=== PATIENT | female | born 1980 | race Caucasian/White ===

== ENCOUNTER 2016-09-30 20:40 | Emergency (ER) | payer MEDICAID ==
[2016-09-30] MEDS ORDERED: CLINDAMYCIN 150 MG CAPSULE PO STA (21:09)
[2016-09-30] MEDS ORDERED: CLINDAMYCIN 150 MG CAPSULE PO ONE (21:10)
== END 2016-09-30 21:15 | disposition home or self-care (01) ==
DX: N76.4 Abscess of vulva (principal); F17.200 Nicotine dependence, unspecified, uncomplicated
CPT/HCPCS: 10160; 87070; 87077; 87181; 87205; 99283; A9270

== ENCOUNTER 2017-03-01 12:16 | Emergency (ER) | payer MEDICAID ==
[2017-03-01 12:27] VITALS: BP 130/84
[2017-03-01] MEDS ORDERED: KETOROLAC 30 MG/ML VIAL IM STA (13:12)
[2017-03-01] MEDS ORDERED: CYCLOBENZAPRINE 10 MG TABLET PO STA (13:12)
[2017-03-01] MEDS ORDERED: DEXAMETHASONE 10 MG/ML VIAL PO STA (13:12)
[2017-03-01] MEDS ORDERED: CHERRY SYRUP 10 ML UDC PO ONE (13:14)
[2017-03-01] MEDS ORDERED: KETOROLAC 30 MG/ML VIAL ONE (13:14)
[2017-03-01] MEDS ORDERED: CYCLOBENZAPRINE 10 MG TABLET PO ONE (13:14)
[2017-03-01] MEDS ORDERED: DEXAMETHASONE 10 MG/ML VIAL ONE (13:15)
--- NOTE | 2017-03-01 13:16 | ED Physician Documentation ---
PD HPI BACK PAIN - Stated complaint Stated Complaint: LOW BACK PX - Chief complaint Chief Complaint: Back Pain - History obtained from History obtained from: Patient - History of Present Illness Timing - onset: How many days ago (2) Timing - duration: Days (2) Timing - details: Gradual onset Pain level max: 8 Pain level now: 6 Location: Lower, Right, Left Quality: Pain, Spasm, Similar to prior episodes Associated symptoms: No: Fever, Weakness, Numbness, Incontinent of urine, Unable to urinate, Hematuria, Incontinent of stool Improves with: Rest Worsened by: Movement Contributing factors: Other (Patient states that the pain started after riding her bicycle for approximately 3-4 blocks 2 days ago with her 5-year-old son. 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, Ovarian cysts : None HEENT: None Psych: Depression, Anxiety Musculoskeletal: None Derm: None - Past Surgical History Past Surgical History: Yes /LOOM OPERATOR APPRENTICE: section, Tubal ligation, Hysterectomy HEENT: Other - Present Medications Home Medications: Ambulatory Orders Medication Instructions Recorded Confirmed Venlafaxine [Effexor] 150 mg PO BID 09/13/13 03/01/17 Cyclobenzaprine [Flexeril] 10 mg PO TID PRN 03/11/14 03/01/17 Nortriptyline [Pamelor] 50 mg PO QPM 03/11/14 03/01/17 Metoprolol Tartrate [Lopressor] 25 mg PO DAILY #20 tablet 09/02/14 03/01/17 oxyCODONE/ACET 5/325 [Percocet 5 1 each PO Q4-6H PRN #10 tablet 05/06/15 mg/325 mg] Lorazepam [Ativan] 1 mg PO BID PRN #14 tablet 05/11/16 03/01/17 Omeprazole 40 mg PO BID 05/17/16 03/01/17 Quetiapine Fumarate [Seroquel] 100 mg PO QPM 05/17/16 03/01/17 Naproxen 375 mg PO BID #20 tablet 05/24/16 03/01/17 Ondansetron HCl [Zofran] 4 mg PO Q6H PRN #20 tablet 05/24/16 03/01/17 Phenytoin [Dilantin] 100 mg PO TID #60 capsule 06/03/16 03/01/17 Clindamycin [Cleocin] 300 mg PO Q6H 7 Days 09/30/16 03/01/17 Cyclobenzaprine [Flexeril] 1 tab TID PRN 03/01/17 03/01/17 Cyclobenzaprine [Flexeril] 10 mg PO TID PRN #20 tablet 03/01/17 Hydrocodone/Acetaminophen 1 - 2 each PO Q6H PRN #10 tablet 03/01/17 [Hydrocodon-Acetaminophen 5-325] Meloxicam [Mobic] 7.5 mg PO BID PRN #20 tablet 03/01/17 Metoprolol Succinate 1 tab BID 03/01/17 03/01/17 Polyethylene Glycol 3350 [Miralax] 17 gm PO DAILY PRN #1 bottle 03/01/17 - Allergies Allergies/Adverse Reactions: Allergies Allergy/AdvReac Type Severity Reaction Status Date / Time Penicillins Allergy Hives Verified 03/01/17 12:25 acyclovir AdvReac Severe sick to Verified 03/01/17 12:25 stomach; vomiting; - Social History Does the pt smoke?: Yes Smoking Status: Current every day smoker Does the pt drink ETOH?: No Does the pt have substance abuse?: No - Immunizations Immunizations are current?: Yes - POLST Patient has POLST: No PD ED PE NORMAL - Vitals Vital signs reviewed: Yes - General General: Alert and oriented X 3, No acute distress, Well developed/nourished - HEENT HEENT: Moist mucous membranes - Neck Neck: Supple, no meningeal sign - Cardiac Cardiac: RRR - Respiratory Respiratory: No respiratory distress, Clear bilaterally - Abdomen Abdomen: Soft, Non tender, Non distended - Back Back: No spinal TTP - Derm Derm: Warm and dry - Extremities Extremities: Other (normal bilateral lower extremity patellar and ankle jerk reflexes. Normal great toe extension bilaterally) - Neuro Neuro: Alert and oriented X 3, No motor deficit, No sensory deficit - Psych Psych: Normal mood, Normal affect Results - Vitals Vitals: Vital Signs - 24 hr 03/01/17 12:20 Temperature 36.9 C Heart Rate 86 Respiratory 18 Rate Blood Pressure 130/84 H O2 Saturation 97 Oxygen O2 Source Room air PD MEDICAL DECISION MAKING - ED course Complexity details: re-evaluated patient, considered differential (no cauda equina, no spinal epidural abscess, no fracture, no aortic dissection or evidence of aneursym rupture), d/w patient ED course: Patient is a 36-year-old female who presents to the emergency department with low back pain that radiates to the bilateral legs. Possible sciatica? No evidence of sacroiliitis. No evidence of spinal epidural abscess. No evidence of fracture. Will treat her with nonsteroidal anti-inflammatory medications and muscle relaxants. We will have her follow-up with her doctor on Thursday for further evaluation and care. She also complains of muscle cramping and this should improve with muscle relaxants. She also has had some constipation, will prescribe MiraLAX for her. Patient counseled regarding signs and symptoms for which I believe and urgent re-evaluation would be necessary. Patient with good understanding of and agreement to plan and is comfortable going home at this time This document was made in part using voice recognition software. While efforts are made to proofread this document, sound alike and grammatical errors may occur. Departure - Departure Disposition: Home, Self Care Clinical Impression: Sciatica Qualifiers: Laterality: bilateral Qualified Code(s): M54.31 - Sciatica, right side; M54.32 - Sciatica, left side Condition: Good Instructions: ED Sciatica Follow-Up: Yeyo Garcia MD [Primary Care Provider] - Within 3 Days Prescriptions: Cyclobenzaprine [Flexeril] 10 mg PO TID PRN #20 tablet PRN Reason: Spasms Hydrocodone/Acetaminophen [Hydrocodon-Acetaminophen 5-325] 1 - 2 each PO Q6H PRN #10 tablet PRN Reason: pain Polyethylene Glycol 3350 [Miralax] 17 gm PO DAILY PRN #1 bottle PRN Reason: Constipation Meloxicam [Mobic] 7.5 mg PO BID PRN #20 tablet PRN Reason: pain Comments: This should improve over the next few days. The steroids will continue to work throughout the day and should help your pain. Return if you worsen. Drink plenty of water at home. Your blood pressure was elevated today on check in to the emergency department. This does not mean that you have hypertension, it is a common phenomenon to check into the emergency department and have elevated blood pressure. I recommend that you see your primary care physician within the week to have it rechecked when you're feeling better. Do not drink alcohol or drive while on narcotic pain medicine. Note that many narcotic pain relievers also contain tylenol/acetaminophen. Please ensure that your total dose of acetaminophen from all sources does not exceed 3 grams (3000mg) per day. You may constipated on this medication, take a stool softener such as "Colace" twice a day while you are on it. Also recommend a uohq-pmp-vbtkhqu laxative such as senna or MiraLAX any day that you do not have a bowel movement. If you received narcotic pain medication in the emergency department, do not drive or operate machinery for the next 24 hours.
[2017-03-01] MEDS ORDERED: HYDROcod/ACETAM 5/325 MG TABLET PO STA (13:18)
[2017-03-01] MEDS ORDERED: HYDROcod/ACETAM 5/325 MG TABLET ONE (13:20)
== END 2017-03-01 13:27 | disposition home or self-care (01) ==
LOC: ED 12:16
DX: M54.31 Sciatica, right side (principal); M54.32 Sciatica, left side; R03.0 Elevated blood-pressure reading, without diagnosis of hypertension; F41.9 Anxiety disorder, unspecified; F32.9 Major depressive disorder, single episode, unspecified; F17.200 Nicotine dependence, unspecified, uncomplicated; Z90.710 Acquired absence of both cervix and uterus
CPT/HCPCS: 96372; 99283; A9270

== ENCOUNTER 2017-03-07 19:34 | Emergency (ER) | payer MEDICAID ==
--- NOTE | 2017-03-07 20:20 | ED Physician Documentation ---
History of Present Illness - Stated complaint Stated Complaint: FEMALE - Chief complaint Chief Complaint: UTI - History obtained from History obtained from: Patient - History of Present Illness Timing: How many days ago (5-6) Improved by: no ameliorating factors Worsened by: no exacerbating factors - Additonal information Additional information: T+R from this ED earlier this week for back pain, subsequently followed-up with PMD and diagnosed with UTI, rx Cipro. She feels she is feeling worse overall; specifically, she feels increasing generalized weakness, "like I'm going to pass out" (per patient). Feels like she has to urinate but not much urine output. She says she is constipated so she took stool softeners which resulted in soft stool output. Review of Systems Constitutional: denies: Fever, Chills, Sweats Cardiac: reports: Reviewed and negative Respiratory: reports: Reviewed and negative GI: reports: Constipation (states she is constipated despite then saying she is having soft stools subsequent to taking stool softener), Reviewed and negative : reports: Frequency. denies: Dysuria Neurologic: reports: Generalized weakness. 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, Ovarian cysts : None HEENT: None Psych: Depression, Anxiety Musculoskeletal: None Derm: None - Past Surgical History Past Surgical History: Yes /BAKER DOUGHNUT: section, Tubal ligation, Hysterectomy HEENT: Other - Present Medications Home Medications: Ambulatory Orders Medication Instructions Recorded Confirmed Venlafaxine [Effexor] 150 mg PO BID 09/13/13 03/07/17 Nortriptyline [Pamelor] 50 mg PO QPM 03/11/14 03/07/17 oxyCODONE/ACET 5/325 [Percocet 5 1 each PO Q4-6H PRN #10 tablet 05/06/15 mg/325 mg] Lorazepam [Ativan] 1 mg PO BID PRN #14 tablet 05/11/16 03/07/17 Quetiapine Fumarate [Seroquel] 100 mg PO QPM PRN 05/17/16 03/07/17 Phenytoin [Dilantin] 100 mg PO TID #60 capsule 06/03/16 03/07/17 Cyclobenzaprine [Flexeril] 10 mg PO TID PRN #20 tablet 03/01/17 03/07/17 Meloxicam [Mobic] 7.5 mg PO BID PRN #20 tablet 03/01/17 03/07/17 Polyethylene Glycol 3350 [Miralax] 17 gm PO DAILY PRN #1 bottle 03/01/17 Metoprolol Tartrate [Lopressor] 25 mg PO TID 03/07/17 03/07/17 Naproxen 375 mg PO BID PRN 03/07/17 03/07/17 - Allergies Allergies/Adverse Reactions: Allergies Allergy/AdvReac Type Severity Reaction Status Date / Time Penicillins Allergy Hives Verified 03/07/17 19:46 acyclovir AdvReac Severe sick to Verified 03/07/17 19:46 stomach; vomiting; - Social History Does the pt smoke?: Yes Smoking Status: Current every day smoker Does the pt drink ETOH?: No Does the pt have substance abuse?: No - Immunizations Immunizations are current?: Yes - POLST Patient has POLST: No PD ED PE NORMAL - Vitals Vital signs reviewed: Yes - General General: Alert and oriented X 3, No acute distress, Well developed/nourished - HEENT HEENT: PERRL, EOMI, Moist mucous membranes, Pharynx benign - Neck Neck: Supple, no meningeal sign - Cardiac Cardiac: RRR, No murmur - Respiratory Respiratory: No respiratory distress, Clear bilaterally - Abdomen Abdomen: Soft, Non tender, Non distended - Back Back: No CVA TTP - Derm Derm: Normal color, Warm and dry - Extremities Extremities: No edema - Neuro Neuro: Alert and oriented X 3, substation operator automatic 2-12 intact, No motor deficit, No sensory deficit, Normal speech Results - Vitals Vitals: Vital Signs - 24 hr 03/07/17 03/07/17 19:39 21:07 Temperature 37.1 C 36.3 C L Heart Rate 97 84 Respiratory 18 16 Rate Blood Pressure 118/75 108/65 O2 Saturation 99 98 Oxygen O2 Source Room air - Labs Labs: Laboratory Tests 03/07/17 03/07/17 03/07/17 20:40 20:53 20:53 WBC 10.4 RBC 3.80 L Hgb 11.9 L Hct 35.1 L MCV 92.4 MCH 31.4 H MCHC 34.0 RDW 13.2 Plt Count 254 MPV 9.2 Neut # 5.8 Lymph # 3.2 [place] # 0.5 Eos # 0.8 H Baso # 0.1 Absolute Nucleated RBC 0.00 Nucleated RBCs 0.0 Sodium 138 Potassium 3.5 Chloride 106 Carbon Dioxide 25 Anion Gap 7.0 BUN 13 Creatinine 0.6 Estimated GFR (MDRD) 114 Glucose 87 Calcium 8.8 Urine Color YELLOW Urine Clarity CLEAR Urine pH 6.0 Ur Specific [place] 1.020 Urine Protein NEGATIVE Urine Glucose (UA) NEGATIVE Urine Ketones NEGATIVE Urine Occult Blood TRACE-INTA Urine Nitrite NEGATIVE Urine Bilirubin NEGATIVE Urine Urobilinogen 0.2 (NORMAL) Ur Leukocyte Esterase NEGATIVE Ur Microscopic Review NOT INDICATED Urine Culture Comments NOT INDICATED Phenytoin < 2.5 PD MEDICAL DECISION MAKING - ED course Complexity details: reviewed old records, reviewed results, re-evaluated patient , considered differential, d/w patient Departure - Departure Disposition: 01 Home, Self Care Clinical Impression: Weakness Condition: Good Instructions: ED Weakness [facility] Follow-Up: Yeyo Garcia MD [Primary Care Provider] - Discharge Date/Time: 03/07/17 22:20
[2017-03-07 21:01] LABS: BILIRUBIN,URINE NEGATIVE (NEGATIVE)
[2017-03-07 21:01] LABS: BASOPHILS # (AUTO) 0.1 10^3/uL (0.0-0.1); BASOPHILS % (AUTO) 0.6 %; EOSINOPHILS # (AUTO) 0.8 10^3/uL (0.0-0.7); EOSINOPHILS % (AUTO) 7.3 %; HCT - HEMATOCRIT 35.1 % (37.0-47.0); HGB - HEMOGLOBIN 11.9 g/dL (12.0-16.0); LYMPHOCYTES # (AUTO) 3.2 10^3/uL (1.5-3.5); LYMPHOCYTES % (AUTO) 31.2 %; MEAN CORPUSCULAR HEMOGLOBIN 31.4 pg (27.0-31.0); MEAN CORPUSCULAR VOLUME 92.4 fL (81.0-99.0); MEAN PLATELET VOLUME 9.2 fL (7.9-10.8); MONOCYTES # (AUTO) 0.5 10^3/uL (0.0-1.0); MONOCYTES % (AUTO) 5.1 %; NEUTROPHILS # (AUTO) 5.8 10^3/uL (1.5-6.6); NEUTROPHILS % (AUTO) 55.8 %; RED CELL DISTRIBUTION WIDTH 13.2 % (12.0-15.0); UNCORRECTED WHITE BLOOD COUNT 10.4 x10^3/uL; WHITE BLOOD COUNT 10.4 x10^3/uL (4.8-10.8)
[2017-03-07 21:06] LABS: UA CHARGE (STRIP ONLY) YES; UR CULTURE IF IND NOT INDICATED
[2017-03-07 21:07] VITALS: BP 108/65
[2017-03-07 21:09] LABS: BUN - BLOOD UREA NITROGEN 13 mg/dL (6-20); CALCIUM 8.8 mg/dL (8.5-10.3); CARBON DIOXIDE - CO2 25 mmol/L (21-32); CHLORIDE 106 mmol/L (101-111); CREATININE 0.6 mg/dL (0.4-1.0); GFR - MDRD 114 (>89); GLUCOSE 87 mg/dL (70-100); POTASSIUM 3.5 mmol/L (3.5-5.0); SODIUM 138 mmol/L (135-145)
== END 2017-03-07 22:20 | disposition home or self-care (01) ==
LOC: ED 19:34
DX: R53.1 Weakness (principal); F41.9 Anxiety disorder, unspecified; F32.9 Major depressive disorder, single episode, unspecified; Z90.710 Acquired absence of both cervix and uterus; F17.200 Nicotine dependence, unspecified, uncomplicated
CPT/HCPCS: 36415; 80048; 80185; 81001; 81003; 85025; 87086; 99282; 99283

== ENCOUNTER 2017-04-23 21:40 | Emergency (ER) | payer MEDICAID ==
--- NOTE | 2017-04-23 21:48 | ED Physician Documentation ---
PD HPI ABD PAIN - Stated complaint Stated Complaint: R SIDE ABD PAIN - History obtained from History obtained from: Patient - History of Present Illness Timing - onset: How many days ago (1-2) Timing - duration: Days Timing - details: Gradual onset, Constant, Waxing and waning Pain level now: 6 Quality: Pain Location: RLQ Radiation: Other (no radiation) Improved by: Laying still Worsened by: Moving, Palpation, Other (BM, urinating) Associated symptoms: Nausea. No: Fever, Vomiting, Diarrhea, Constipation Similar symptoms before: Has not had sx before Recently seen: Not recently seen - Additional information Additional information: c/o 1-2 days of nausea, abdominal bloating, abdominal pain that was initially diffuse but has gradually become increasingly focused in RLQ. Review of Systems Constitutional: denies: Fever, Chills, Sweats Cardiac: reports: Reviewed and negative Respiratory: reports: Reviewed and negative GI: reports: Abdominal Pain, Abdominal Swelling, Nausea. denies: Vomiting, Constipation, Diarrhea : reports: Dysuria. 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 cysts : None HEENT: None Psych: Depression, Anxiety Musculoskeletal: None Derm: None - Past Surgical History Past Surgical History: Yes /DEPUTY CLERK OF COURT: section, Tubal ligation, Hysterectomy HEENT: Other - Present Medications Home Medications: Ambulatory Orders Medication Instructions Recorded Confirmed Venlafaxine [Effexor] 150 mg PO BID 09/13/13 03/07/17 Nortriptyline [Pamelor] 50 mg PO QPM 03/11/14 03/07/17 oxyCODONE/ACET 5/325 [Percocet 5 1 each PO Q4-6H PRN #10 tablet 05/06/15 mg/325 mg] Lorazepam [Ativan] 1 mg PO BID PRN #14 tablet 05/11/16 03/07/17 Quetiapine Fumarate [Seroquel] 100 mg PO QPM PRN 05/17/16 03/07/17 Phenytoin [Dilantin] 100 mg PO TID #60 capsule 06/03/16 03/07/17 Cyclobenzaprine [Flexeril] 10 mg PO TID PRN #20 tablet 03/01/17 03/07/17 Meloxicam [Mobic] 7.5 mg PO BID PRN #20 tablet 03/01/17 03/07/17 Polyethylene Glycol 3350 [Miralax] 17 gm PO DAILY PRN #1 bottle 03/01/17 Metoprolol Tartrate [Lopressor] 25 mg PO TID 03/07/17 03/07/17 Naproxen 375 mg PO BID PRN 03/07/17 03/07/17 Ondansetron HCl [Zofran] 4 mg PO Q6HR PRN #14 tablet 04/24/17 - Allergies Allergies/Adverse Reactions: Allergies Allergy/AdvReac Type Severity Reaction Status Date / Time Penicillins Allergy Hives Verified 03/07/17 19:46 acyclovir AdvReac Severe sick to Verified 03/07/17 19:46 stomach; vomiting; - Social History Does the pt smoke?: Yes Smoking Status: Current every day smoker Does the pt drink ETOH?: No Does the pt have substance abuse?: No - Immunizations Immunizations are current?: Yes - POLST Patient has POLST: No PD ED PE NORMAL - Vitals Vital signs reviewed: Yes - General General: Alert and oriented X 3, No acute distress, Well developed/nourished - Neck Neck: Supple, no meningeal sign - Cardiac Cardiac: RRR, No murmur, No gallop, No rub - Respiratory Respiratory: No respiratory distress, Clear bilaterally - Abdomen Abdomen: Soft, Non distended - Back Back: No CVA TTP - Derm Derm: Normal color, Warm and dry PD ED PE EXPANDED - Abdomen Abdomen: Tender to palpation, RLQ. No: Rebound Results - Vitals Vitals: Vital Signs - 24 hr 04/23/17 04/23/17 04/24/17 21:48 23:43 01:18 Temperature 36.3 C L 36.2 C L 36.9 C Heart Rate 107 H 93 97 Respiratory 16 15 15 Rate Blood Pressure 124/88 H 120/69 103/58 L O2 Saturation 98 100 100 04/24/17 02:35 Temperature Heart Rate 76 Respiratory 17 Rate Blood Pressure 117/72 O2 Saturation 96 Oxygen O2 Source Room air - Labs Labs: Laboratory Tests 08/17/17 08/17/17 08/18/17 22:16 22:59 00:05 WBC 14.6 H RBC 3.97 L Hgb 12.4 Hct 37.1 MCV 93.3 MCH 31.2 H MCHC 33.4 RDW 13.1 Plt Count 248 MPV 9.5 Neut # 9.2 H Lymph # 3.8 H [place] # 0.9 Eos # 0.7 Baso # 0.1 Absolute Nucleated RBC 0.01 Nucleated RBCs 0.0 Sodium 137 Potassium 3.7 Chloride 103 Carbon Dioxide 25 Anion Gap 9.0 BUN 19 Creatinine 0.9 Estimated GFR (MDRD) 71 L Glucose 94 Calcium 8.8 Total Bilirubin 0.3 AST 15 ALT 19 Alkaline Phosphatase 85 Total Protein 7.6 Albumin 4.0 Globulin 3.6 Albumin/Globulin Ratio 1.1 Lipase 33 Urine Color YELLOW Urine Clarity CLEAR Urine pH 6.0 Ur Specific [place] >=1.030 H Urine Protein NEGATIVE Urine Glucose (UA) NEGATIVE Urine Ketones NEGATIVE Urine Occult Blood SMALL H Urine Nitrite NEGATIVE Urine Bilirubin NEGATIVE Urine Urobilinogen 0.2 (NORMAL) Ur Leukocyte Esterase NEGATIVE Urine RBC 6-10 H Urine WBC 0-3 Ur Squamous Epith Cells MANY Squamous H Urine Bacteria Few Ur Microscopic Review INDICATED Urine Culture Comments NOT INDICATED Urine HCG, Qual NEGATIVE - Rads (name of study) CT A/P Radiology: Prelim report reviewed, See rad report PD MEDICAL DECISION MAKING - ED course Complexity details: reviewed results, re-evaluated patient, considered differential, d/w patient Departure - Departure Disposition: 01 Home, Self Care Clinical Impression: Abdominal pain Condition: Good Instructions: ED Abdominal Pain Unkn Cause Follow-Up: Yeyo Garcia MD [Primary Care Provider] - Prescriptions: Ondansetron HCl [Zofran] 4 mg PO Q6HR PRN #14 tablet PRN Reason: Nausea / Vomiting Discharge Date/Time: 04/24/17 02:38
[2017-04-23] MEDS ORDERED: SODIUM CHLORIDE 0.9% 1,000 ML IV STA (22:08)
[2017-04-23] MEDS ORDERED: ONDANSETRON 4 MG/2 ML VIAL IVP STA (22:08)
[2017-04-23 22:39] LABS: BILIRUBIN,URINE NEGATIVE (NEGATIVE)
[2017-04-23 22:41] LABS: HCG UR QUAL NEGATIVE; UA w/ MICROSCOPIC CHARGE YES
[2017-04-23 22:48] LABS: WBC,URINE 0-3 /HPF (0-5)
[2017-04-23 22:49] LABS: UR CULTURE IF IND NOT INDICATED
[2017-04-23] MEDS ORDERED: ONDANSETRON 4 MG/2 ML VIAL ONE (22:49)
[2017-04-23] MEDS ORDERED: IOPAMIDOL-300 100 ML VIAL IVP ONE (23:17)
[2017-04-23 23:21] LABS: ALBUMIN/GLOBULIN RATIO 1.1 (1.0-2.2); BILIRUBIN,TOTAL 0.3 mg/dL (0.2-1.0); CALCIUM 8.8 mg/dL (8.5-10.3); CREATININE 0.9 mg/dL (0.4-1.0); POTASSIUM 3.7 mmol/L (3.5-5.0); TOTAL PROTEIN 7.6 g/dL (6.7-8.2)
--- NOTE | 2017-04-23 23:40 | CT Preliminary Report ---
Exam: CT Abdomen/Pelvis W/ IMPRESSION: 1. Appendix appears normal. 2. Status post hysterectomy. Left ovarian cyst measuring 3.1 x 2.3 cm. [facility] SITE ID: [id number]
--- NOTE | 2017-04-23 23:43 | CT Report ---
EXAM: CT ABDOMEN AND PELVIS EXAM DATE: 04/23/2017 11:21 PM. CLINICAL HISTORY: RLQ pain. COMPARISONS: 05/17/2016. TECHNIQUE: Routine helical CT imaging was performed through the abdomen and pelvis. IV contrast: Rona onic. Enteric contrast: No. Reconstructions: Coronal and sagittal. In accordance with CT protocol optimization, one or more of the following dose reduction techniques w ere utilized for this exam: automated exposure control, adjustment of mA and/or KV based on patient s ize, or use of iterative reconstructive technique. FINDINGS: Lung Bases: Unremarkable. Liver: No focal lesion identified. Gallbladder/Bile Ducts: Unremarkable. Spleen: Normal. Pancreas: Normal. Adrenal Glands: Normal. Kidneys: Normal. No masses or hydronephrosis. Peritoneal Cavity/Bowel: No bowel obstruction seen. No diverticulitis. No free air or free fluid. No lymphadenopathy. Appendix appears normal. Pelvic Organs: Uterus is surgically absent. Left ovarian cyst measuring 3.1 x 2.3 cm. Visualized pelv ic organs are otherwise unremarkable. Vasculature: No aneurysms or other significant abnormality. Bones: No significant abnormality. Other: None. IMPRESSION: 1. Appendix appears normal. 2. Status post hysterectomy. Left ovarian cyst measuring 3.1 x 2.3 cm. [facility] Referring Provider Line: [phone] SITE ID: [id number]
[2017-04-24 00:13] LABS: BASOPHILS # (AUTO) 0.1 10^3/uL (0.0-0.1); BASOPHILS % (AUTO) 0.8 %; EOSINOPHILS # (AUTO) 0.7 10^3/uL (0.0-0.7); EOSINOPHILS % (AUTO) 4.5 %; HCT - HEMATOCRIT 37.1 % (37.0-47.0); HGB - HEMOGLOBIN 12.4 g/dL (12.0-16.0); LYMPHOCYTES # (AUTO) 3.8 10^3/uL (1.5-3.5); LYMPHOCYTES % (AUTO) 25.9 %; MEAN CORPUSCULAR HEMOGLOBIN 31.2 pg (27.0-31.0); MEAN CORPUSCULAR HGB CONC 33.4 g/dL (32.0-36.0); MEAN CORPUSCULAR VOLUME 93.3 fL (81.0-99.0); MEAN PLATELET VOLUME 9.5 fL (7.9-10.8); MONOCYTES # (AUTO) 0.9 10^3/uL (0.0-1.0); MONOCYTES % (AUTO) 5.8 %; NEUTROPHILS # (AUTO) 9.2 10^3/uL (1.5-6.6); RED BLOOD COUNT 3.97 10^6/uL (4.20-5.40); RED CELL DISTRIBUTION WIDTH 13.1 % (12.0-15.0); UNCORRECTED WHITE BLOOD COUNT 14.6 x10^3/uL; WHITE BLOOD COUNT 14.6 x10^3/uL (4.8-10.8)
[2017-04-24] MEDS ORDERED: ONDANSETRON 4 MG/2 ML VIAL IVP STA (01:53)
[2017-04-24] MEDS ORDERED: ONDANSETRON ODT 4 MG Prepack 2 TL STA (01:55)
[2017-04-24] MEDS ORDERED: oxyCOD/ACETAMIN 5 MG/325 MG TABLET PO STA (01:56)
[2017-04-24] MEDS ORDERED: oxyCODONE/ACET 5/325 Prepack 4 PO STA (01:56)
[2017-04-24] MEDS ORDERED: oxyCOD/ACETAMIN 5 MG/325 MG TABLET PO ONE (02:15)
[2017-04-24] MEDS ORDERED: ONDANSETRON 4 MG/2 ML VIAL ONE (02:15)
[2017-04-24] MEDS ORDERED: oxyCODONE/ACET 5/325 Prepack 4 PO ONE (02:16)
[2017-04-24] MEDS ORDERED: ONDANSETRON ODT 4 MG Prepack 2 TL ONE (02:16)
[2017-04-24] MEDS ORDERED: SODIUM CHLORIDE FLUSH 0.9% 10 ML SYRINGE IVP ONE (02:19)
[2017-04-24 02:36] VITALS: BP 117/72
== END 2017-04-24 02:38 | disposition home or self-care (01) ==
LOC: ED 21:40
DX: R10.31 Right lower quadrant pain (principal); F17.200 Nicotine dependence, unspecified, uncomplicated
CPT/HCPCS: 36415; 74177; 80053; 81001; 81025; 83690; 85025; 96374; 96376; 99283; 99284; A9270; Q9967; 81003; 87086

== ENCOUNTER 2017-10-11 19:02 | Emergency (ER) | payer MEDICAID ==
[2017-10-11] MEDS ORDERED: oxyCOD/ACETAMIN 5 MG/325 MG TABLET PO STA (19:58)
--- NOTE | 2017-10-11 19:59 | ED Physician Documentation ---
PD HPI SEIZURE - Stated complaint Stated Complaint: GLF/MORATAYA - Chief complaint Chief Complaint: Neuro - History obtained from History obtained from: Patient, Family - History of Present Illness Timing - onset: Other (She had run out of her Dilantin. About 10 days ago she had a seizure and then a seizure again the next day, hitting her head both times. 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, Ovarian cysts : None HEENT: None Psych: Depression, Anxiety Musculoskeletal: None Derm: None - Past Surgical History Past Surgical History: Yes /BUSINESS DEVELOPER: section, Tubal ligation, Hysterectomy HEENT: Other - Present Medications Home Medications: Ambulatory Orders Medication Instructions Recorded Confirmed Venlafaxine [Effexor] 150 mg PO BID 09/13/13 03/07/17 Nortriptyline [Pamelor] 50 mg PO QPM 03/11/14 03/07/17 oxyCODONE/ACET 5/325 [Percocet 5 1 each PO Q4-6H PRN #10 tablet 05/06/15 mg/325 mg] Lorazepam [Ativan] 1 mg PO BID PRN #14 tablet 05/11/16 03/07/17 Quetiapine Fumarate [Seroquel] 100 mg PO QPM PRN 05/17/16 03/07/17 Phenytoin [Dilantin] 100 mg PO TID #60 capsule 06/03/16 03/07/17 Cyclobenzaprine [Flexeril] 10 mg PO TID PRN #20 tablet 03/01/17 03/07/17 Meloxicam [Mobic] 7.5 mg PO BID PRN #20 tablet 03/01/17 03/07/17 Polyethylene Glycol 3350 [Miralax] 17 gm PO DAILY PRN #1 bottle 03/01/17 Metoprolol Tartrate [Lopressor] 25 mg PO TID 03/07/17 03/07/17 Naproxen 375 mg PO BID PRN 03/07/17 03/07/17 Ondansetron HCl [Zofran] 4 mg PO Q6HR PRN #14 tablet 04/24/17 - Allergies Allergies/Adverse Reactions: Allergies Allergy/AdvReac Type Severity Reaction Status Date / Time Penicillins Allergy Hives Verified 10/11/17 19:19 acyclovir AdvReac Severe sick to Verified 10/11/17 19:19 stomach; vomiting; - Social History Does the pt smoke?: Yes Smoking Status: Current every day smoker Does the pt drink ETOH?: No Does the pt have substance abuse?: No - Immunizations Immunizations are current?: Yes - POLST Patient has POLST: No PD ED PE NORMAL - Vitals Vital signs reviewed: Yes - General General: Alert and oriented X 3, No acute distress - HEENT HEENT: PERRL, EOMI - Neck Neck: Supple, no meningeal sign, No bony TTP - Neuro Neuro: Alert and oriented X 3 Eye Opening: Spontaneous Motor: Obeys Commands Verbal: Oriented GCS Score: 15 - Psych Psych: Normal mood, Normal affect Results - Vitals Vitals: Vital Signs - 24 hr 10/11/17 19:09 Temperature 36.0 C L Heart Rate 101 H Respiratory 16 Rate Blood Pressure 120/71 O2 Saturation 99 Oxygen O2 Source Room air - Labs Labs: Laboratory Tests 10/11/17 20:13 Sodium 139 Potassium 3.6 Chloride 100 L Carbon Dioxide 26 Anion Gap 13.0 BUN 13 Creatinine 0.6 Estimated GFR (MDRD) 113 Glucose 118 H Calcium 9.1 Total Bilirubin 0.2 AST 18 ALT 17 Alkaline Phosphatase 57 Total Protein 7.1 Albumin 3.8 Globulin 3.3 Albumin/Globulin Ratio 1.2 Lipase 25 Phenytoin < 2.5 PD MEDICAL DECISION MAKING - ED course ED course: 37-year-old woman with seizure disorder has concussive symptoms that persist 10 days after a back to back seizure. She is found to have a subtherapeutic Dilantin level and this was repleted orally. She also confided me that her current boyfriend has hepatitis C and did not help tell her, she would like to be tested. I did advise her that she would either need to follow-up with medical records or her primary care physician for the results. Departure - Departure Disposition: 01 Home, Self Care Clinical Impression: Seizure Condition: Good Record reviewed to determine appropriate education?: Yes Comments: Continue your Dilantin for now, let your neurologist know that your current dosing your Dilantin level was less than 2.5. Return if worse. As discussed no driving for 6 months per [place] law.
[2017-10-11 20:30] LABS: ALBUMIN 3.8 g/dL (3.2-5.5); ALBUMIN/GLOBULIN RATIO 1.2 (1.0-2.2); ALKALINE PHOSPHATASE 57 IU/L (42-121); ALT ALANINE AMINOTRANSFERASE 17 IU/L (10-60); AST ASPARTATE AMINOTRANSFERASE 18 IU/L (10-42); BILIRUBIN,TOTAL 0.2 mg/dL (0.2-1.0); BUN - BLOOD UREA NITROGEN 13 mg/dL (6-20); CALCIUM 9.1 mg/dL (8.5-10.3); CARBON DIOXIDE - CO2 26 mmol/L (21-32); CHLORIDE 100 mmol/L (101-111); CREATININE 0.6 mg/dL (0.4-1.0); GFR - MDRD 113 (>89); GLUCOSE 118 mg/dL (70-100); LIPASE 25 U/L (22-51); SODIUM 139 mmol/L (135-145); TOTAL PROTEIN 7.1 g/dL (6.7-8.2)
[2017-10-11 20:39] LABS: PHENYTOIN (DILANTIN) < 2.5 ug/mL
[2017-10-11] MEDS ORDERED: PHENYTOIN ER 100 MG CAPSULE PO STA (20:50)
--- NOTE | 2017-10-11 21:06 | CT Preliminary Report ---
Exam: CT HEAD W/O IMPRESSION: 1. Negative for an acute or focal intracranial abnormality. 2. Inflammatory disease of the left ethmoid sinus. [facility] SITE ID: [id number]
--- NOTE | 2017-10-11 21:06 | CT Report ---
EXAM: CT HEAD EXAM DATE: 10/11/2017 08:31 PM. CLINICAL HISTORY: Head inj. COMPARISON: None. TECHNIQUE: Multiaxial CT images were obtained from the foramen magnum to the vertex. Reformats: Coron al. IV contrast: None. In accordance with CT protocol optimization, one or more of the following dose reduction techniques w ere utilized for this exam: automated exposure control, adjustment of mA and/or KV based on patient s ize, or use of iterative reconstructive technique. FINDINGS: Parenchyma: No intraparenchymal hemorrhage. No evidence of mass, midline shift, or CT findings of inf arction. Mejia-white differentiation is distinct. Extraaxial Spaces: Normal for age. No subdural or epidural collections identified. Ventricles: Normal in size and position. Sinuses and Orbits: There is moderate mucosal thickening of the left ethmoid sinus. Other paranasal s inuses appear unremarkable. Bones: No evidence of fracture or calvarial defect. Other: None. IMPRESSION: 1. Negative for an acute or focal intracranial abnormality. 2. Inflammatory disease of the left ethmoid sinus. [facility] Referring Provider Line: [phone] SITE ID: [id number]
[2017-10-11 21:32] VITALS: BP 118/76
== END 2017-10-11 21:33 | disposition home or self-care (01) ==
LOC: ED 19:02
DX: G40.909 Epilepsy, unspecified, not intractable, without status epilepticus (principal); F17.200 Nicotine dependence, unspecified, uncomplicated
CPT/HCPCS: 36415; 70450; 80053; 80185; 83690; 99283; A9270; 80074

== ENCOUNTER 2017-12-29 09:18 | Outpatient (CLI) | payer MEDICAID ==
--- NOTE | 2017-12-29 10:16 | XRAY Report ---
MODIFIED BARIUM SWALLOW: 12/29/2017 CLINICAL INDICATION: Dysphagia. FINDINGS: Various consistencies of barium were prepared and administered in conjunction with Speech Pathology. There was no evidence of penetration or aspiration with any administered consistency. Please also refer to full report from Speech Pathology. IMPRESSION: NO EVIDENCE OF PENETRATION OR ASPIRATION. FLUOROSCOPY TIME: 1 minute 11 seconds; 1 spot image obtained (cinefluoroscopy recorded). TD: 12/29/2017 10:15
== END 2017-12-29 09:19 | disposition home or self-care (01) ==
LOC: DI 09:18
PROVIDERS: ATTEND Internal Medicine
DX: R13.10 Dysphagia, unspecified (principal)
CPT/HCPCS: 74230

== ENCOUNTER 2018-03-25 18:24 | Emergency (ER) | payer OTHER, MEDICAID ==
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
--- NOTE | 2018-03-25 21:58 | CT Report ---
Procedure Date: 03/25/2018 Accession Number: [id number] / [id number] Procedure: CT - Head W/O CPT Code: FULL RESULT: EXAM: CT HEAD EXAM DATE: 03/25/2018 09:42 PM. CLINICAL HISTORY: Head injury, MORATAYA. COMPARISON: CT head 09/26/2009. 05/11/2016 and 10/11/2017. TECHNIQUE: Multiaxial CT images were obtained from the foramen magnum to the vertex. Reformats: Coronal. IV contrast: None. In accordance with CT protocol optimization, one or more of the following dose reduction techniques were utilized for this exam: automated exposure control, adjustment of mA and/or KV based on patient size, or use of iterative reconstructive technique. FINDINGS: Parenchyma: No intraparenchymal hemorrhage. No evidence of mass, midline shift, or CT findings of infarction. Mejia-white differentiation is distinct. Extraaxial Spaces: Normal for age. No subdural or epidural collections identified. Ventricles: Normal in size and position. Sinuses and Orbits: Multifocal mucosal thickening and opacification of bilateral ethmoid air cells, left greater than right, similar to prior exam. Otherwise, imaged paranasal sinuses, orbits, and mastoids show no significant abnormality. Bones: No evidence of fracture or calvarial defect. Other: None. IMPRESSION: 1. No acute intracranial abnormality. 2. Ethmoid sinus disease as before. [facility]
[2018-03-25] MEDS ORDERED: IBUPROFEN 600 MG TABLET PO STA (22:18)
[2018-03-25 22:33] VITALS: BP 119/67
== END 2018-03-25 22:31 | disposition home or self-care (01) ==
LOC: ED 18:24
DX: R51 Headache (principal); F17.200 Nicotine dependence, unspecified, uncomplicated; Y09 Assault by unspecified means
CPT/HCPCS: 70450; 99283; A9270

== ENCOUNTER 2018-06-02 16:45 | Emergency (ER) | payer MEDICAID, OTHER ==
[2018-06-02] MEDS ORDERED: KETOROLAC 60 MG/2 ML VIAL IM STA (17:07)
[2018-06-02] MEDS ORDERED: DEXAMETHASONE 10 MG/ML VIAL PO STA (17:07)
[2018-06-02] MEDS ORDERED: CYCLOBENZAPRINE 10 MG TABLET PO STA (17:07)
--- NOTE | 2018-06-02 17:13 | ED Physician Documentation ---
PD HPI BACK PAIN - Stated complaint Stated Complaint: BACK PX - Chief complaint Chief Complaint: Back Pain - History obtained from History obtained from: Patient - History of Present Illness Timing - onset: How many days ago (several) Timing - duration: Days Timing - details: Gradual onset Pain level max: 9 Pain level now: 8 Location: Lower, Right, Left Quality: Pain, Spasm, Similar to prior episodes Associated symptoms: No: Fever, Weakness, Numbness, Incontinent of urine, Unable to urinate, Hematuria, Incontinent of stool Improves with: Rest Worsened by: Movement, Lifting Contributing factors: Other (has chronic sciatic issues) Recently seen: Not recently seen Review of Systems Constitutional: denies: Fever, Chills Respiratory: denies: Cough GI: denies: Nausea, Vomiting, Diarrhea Skin: denies: Rash Musculoskeletal: reports: Back pain. 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, Hysterectomy HEENT: Other - Present Medications Home Medications: Ambulatory Orders Medication Instructions Recorded Confirmed Venlafaxine [Effexor] 150 mg PO BID 09/13/13 03/07/17 Nortriptyline [Pamelor] 50 mg PO QPM 03/11/14 03/07/17 oxyCODONE/ACET 5/325 [Percocet 5 1 each PO Q4-6H PRN #10 tablet 05/06/15 03/07/17 mg/325 mg] Lorazepam [Ativan] 1 mg PO BID PRN #14 tablet 05/11/16 03/07/17 Phenytoin [Dilantin] 100 mg PO TID #60 capsule 06/03/16 03/07/17 Cyclobenzaprine [Flexeril] 10 mg PO TID PRN #20 tablet 03/01/17 03/07/17 Polyethylene Glycol 3350 [Miralax] 17 gm PO DAILY PRN #1 bottle 03/01/17 03/07/17 Metoprolol Tartrate [Lopressor] 25 mg PO TID 03/07/17 03/07/17 Cyclobenzaprine [Flexeril] 10 mg PO TID PRN #20 tablet 06/02/18 Meloxicam [Mobic] 15 mg PO DAILY PRN #20 tablet 06/02/18 Methylprednisolone [Medrol] 4 mg PO DAILY #1 tab.ds.pk 06/02/18 - Allergies Allergies/Adverse Reactions: Allergies Allergy/AdvReac Type Severity Reaction Status Date / Time Penicillins Allergy Hives Verified 06/02/18 16:52 acyclovir AdvReac Severe sick to Verified 06/02/18 16:52 stomach; vomiting; - Social History Does the pt smoke?: Yes Smoking Status: Current every day smoker Does the pt drink ETOH?: No Does the pt have substance abuse?: No - Immunizations Immunizations are current?: Yes - POLST Patient has POLST: No PD ED PE NORMAL - Vitals Vital signs reviewed: Yes - General General: Alert and oriented X 3, No acute distress - HEENT HEENT: Moist mucous membranes - Neck Neck: Supple, no meningeal sign - Cardiac Cardiac: RRR - Respiratory Respiratory: No respiratory distress, Clear bilaterally - Abdomen Abdomen: Soft, Non tender, Non distended - Back Back: No spinal TTP (no step off or deformity. paraspinal spasm B low lumbar.) - Derm Derm: Warm and dry - Extremities Extremities: Other (Normal bilateral lower extremity patellar and ankle jerk reflexes. Normal great toe extension bilaterally. no saddle anesthesia) - Neuro Neuro: Alert and oriented X 3, No motor deficit, No sensory deficit - Psych Psych: Normal mood, Normal affect Results - Vitals Vitals: Vital Signs - 24 hr 06/02/18 06/02/18 16:50 17:41 Temperature 36.3 C L 36.5 C Heart Rate 94 87 Respiratory 16 14 Rate Blood Pressure 118/65 100/58 L O2 Saturation 100 99 Oxygen O2 Source Room air - Labs Labs: Laboratory Tests 06/02/18 06/02/18 17:00 17:00 Urine Color YELLOW Urine Clarity CLEAR Urine pH 6.0 Ur Specific [place] >=1.030 H >=1.030 H Urine Protein TRACE Urine Glucose (UA) NEGATIVE Urine Ketones NEGATIVE Urine Occult Blood NEGATIVE Urine Nitrite NEGATIVE Urine Bilirubin NEGATIVE Urine Urobilinogen 0.2 (NORMAL) Ur Leukocyte Esterase NEGATIVE Ur Microscopic Review NOT INDICATED Urine Culture Comments NOT INDICATED Urine HCG, Qual NEGATIVE PD MEDICAL DECISION MAKING - ED course Complexity details: reviewed results, re-evaluated patient, considered differential (No cauda equina, no spinal epidural abscess, no fracture, no aortic dissection or evidence of aneursym rupture), d/w patient ED course: Patient is a 38-year-old female who presents to the emergency department with acute on chronic back pain. Appears consistent with her prior episodes of sciatica. Given Toradol and Flexeril here as well as a dose of dexamethasone. Will place on Medrol for home Along with Mobic and Flexeril. No evidence of UTI. No evidence of pyelonephritis. No evidence of epidural abscess or fracture. Patient counseled regarding signs and symptoms for which I believe and urgent re-evaluation would be necessary. Patient with good understanding of and agreement to plan and is comfortable going home at this time This document was made in part using voice recognition software. While efforts are made to proofread this document, sound alike and grammatical errors may occur. - Sepsis Event Vital Signs: Vital Signs - 24 hr 06/02/18 06/02/18 16:50 17:41 Temperature 36.3 C L 36.5 C Heart Rate 94 87 Respiratory 16 14 Rate Blood Pressure 118/65 100/58 L O2 Saturation 100 99 Oxygen O2 Source Room air Departure - Departure Disposition: 01 Home, Self Care Clinical Impression: Sciatica Qualifiers: Laterality: bilateral Qualified Code(s): M54.31 - Sciatica, right side Condition: Good Instructions: ED Sciatica Follow-Up: Yeyo Garcia MD [Primary Care Provider] - Within 1 week Prescriptions: Cyclobenzaprine [Flexeril] 10 mg PO TID PRN #20 tablet PRN Reason: Spasms Meloxicam [Mobic] 15 mg PO DAILY PRN #20 tablet PRN Reason: pain Methylprednisolone [Medrol] 4 mg PO DAILY #1 tab.ds.pk Comments: Use the medications as prescribed. Return if you worsen. This should improve over the next few days. Continue your Percocet as prescribed by your doctor at home Forms: Activity restrictions Discharge Date/Time: 06/02/18 17:56
[2018-06-02 17:16] LABS: GLUCOSE, URINE (UA) NEGATIVE (NEGATIVE); KETONES,URINE (UA) NEGATIVE (NEGATIVE); LEUKOCYTE ESTERASE, URINE NEGATIVE (NEGATIVE); NITRITE,URINE NEGATIVE (NEGATIVE); OCCULT BLOOD,URINE NEGATIVE (NEGATIVE); PROTEIN,URINE TRACE mg/dL (NEGATIVE); UROBILINOGEN,URINE 0.2 (NORMAL) E.U./dL (NORMAL)
[2018-06-02 17:19] LABS: BILIRUBIN,URINE NEGATIVE (NEGATIVE); CLARITY,URINE CLEAR (CLEAR); ICTOTEST,URINE NEGATIVE
[2018-06-02 17:20] LABS: HCG UR QUAL NEGATIVE
[2018-06-02 17:42] VITALS: BP 100/58
== END 2018-06-02 17:56 | disposition home or self-care (01) ==
LOC: ED 16:45
DX: M54.31 Sciatica, right side (principal); F17.200 Nicotine dependence, unspecified, uncomplicated
CPT/HCPCS: 81003; 81025; 96372; 99283; A9270; 81001; 87086

== ENCOUNTER 2018-06-15 17:59 | Emergency (ER) | payer MEDICAID ==
[2018-06-15] MEDS ORDERED: GLUCAGON 1 MG/ML VIAL IVP STA (18:29)
--- NOTE | 2018-06-15 18:31 | ED Physician Documentation ---
History of Present Illness - Stated complaint Stated Complaint: POSS F/O IN ESOPHAGUS - Chief complaint Chief Complaint: General - History obtained from History obtained from: Patient - History of Present Illness Timing: Today (She was eating corn beef about an hour ago and feels like it got stuck in the mid chest. She frequently has this happen but never this long she is usually able to clear by drinking liquids. 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 HEENT: Other - Present Medications Home Medications: Ambulatory Orders Medication Instructions Recorded Confirmed Venlafaxine [Effexor] 150 mg PO BID 09/13/13 03/07/17 Nortriptyline [Pamelor] 50 mg PO QPM 03/11/14 03/07/17 oxyCODONE/ACET 5/325 [Percocet 5 1 each PO Q4-6H PRN #10 tablet 05/06/15 03/07/17 mg/325 mg] Lorazepam [Ativan] 1 mg PO BID PRN #14 tablet 05/11/16 03/07/17 Phenytoin [Dilantin] 100 mg PO TID #60 capsule 06/03/16 03/07/17 Cyclobenzaprine [Flexeril] 10 mg PO TID PRN #20 tablet 03/01/17 03/07/17 Polyethylene Glycol 3350 [Miralax] 17 gm PO DAILY PRN #1 bottle 03/01/17 03/07/17 Metoprolol Tartrate [Lopressor] 25 mg PO TID 03/07/17 03/07/17 Cyclobenzaprine [Flexeril] 10 mg PO TID PRN #20 tablet 06/02/18 Meloxicam [Mobic] 15 mg PO DAILY PRN #20 tablet 06/02/18 Methylprednisolone [Medrol] 4 mg PO DAILY #1 tab.ds.pk 06/02/18 - Allergies Allergies/Adverse Reactions: Allergies Allergy/AdvReac Type Severity Reaction Status Date / Time Penicillins Allergy Hives Verified 06/02/18 16:52 acyclovir AdvReac Severe sick to Verified 06/02/18 16:52 stomach; vomiting; - Social History Does the pt smoke?: Yes Smoking Status: Current every day smoker Does the pt drink ETOH?: No Does the pt have substance abuse?: No - Immunizations Immunizations are current?: Yes - POLST Patient has POLST: No PD ED PE NORMAL - Vitals Vital signs reviewed: Yes - General General: Alert and oriented X 3, No acute distress - HEENT HEENT: Pharynx benign - Cardiac Cardiac: RRR, No murmur - Respiratory Respiratory: No respiratory distress, Clear bilaterally - Abdomen Abdomen: Non tender, Non distended - Neuro Neuro: Alert and oriented X 3, Normal speech Results - Vitals Vitals: Vital Signs - 24 hr 06/15/18 18:06 Temperature 36.1 C L Heart Rate 87 Respiratory 20 Rate Blood Pressure 120/74 O2 Saturation 100 Oxygen O2 Source Room air PD MEDICAL DECISION MAKING - ED course ED course: 38-year-old woman presents with esophageal food impaction, had no relief with glucagon but when then some nitroglycerin and Ativan she coughed it out and was able to tolerate liquids after that. - Sepsis Event Vital Signs: Vital Signs - 24 hr 06/15/18 18:06 Temperature 36.1 C L Heart Rate 87 Respiratory 20 Rate Blood Pressure 120/74 O2 Saturation 100 Oxygen O2 Source Room air Departure - Departure Disposition: 01 Home, Self Care Clinical Impression: Esophageal obstruction due to food impaction Condition: Good Record reviewed to determine appropriate education?: Yes Instructions: ED Foreign Body Esophageal Rslv
[2018-06-15] MEDS ORDERED: WATER FOR INJECTION,STERILE 10 ML ONE (18:38)
[2018-06-15] MEDS ORDERED: LORazepam 2 MG/ML VIAL IVP STA (18:50)
[2018-06-15] MEDS ORDERED: NITROGLYCERIN SL 0.4 MG TABLET SL STA (18:50)
[2018-06-15] MEDS ORDERED: MAG HYDROX/AL HYDROX/SIMETH 30 ML UDC PO STA (19:29)
[2018-06-15] MEDS ORDERED: LIDOCAINE VISCOUS 2% 15 ML UDC MM STA (19:29)
[2018-06-15 19:45] VITALS: BP 117/74
== END 2018-06-15 19:45 | disposition home or self-care (01) ==
LOC: ED 17:59
DX: T18.128A Food in esophagus causing other injury, initial encounter (principal); F17.200 Nicotine dependence, unspecified, uncomplicated
CPT/HCPCS: 96374; 96375; 99283; A9270; J2060; 84703

== ENCOUNTER 2019-01-25 18:21 | Emergency (ER) | payer MEDICAID ==
[2019-01-25] MEDS ORDERED: cefTRIAXone 1 GM in SODIUM CHLORIDE 0.9% MINIBAG 100 ML IV STA (18:46)
[2019-01-25] MEDS ORDERED: SODIUM CHLORIDE 0.9% 1,000 ML IV ONE (18:46)
--- NOTE | 2019-01-25 18:49 | ED Physician Documentation ---
History of Present Illness - Stated complaint Stated Complaint: POSSIBLE UTI - Chief complaint Chief Complaint: General - History obtained from History obtained from: Patient - History of Present Illness Timing: Today (She been having urinary frequency and saw her physician yesterday who diagnosed her with a UTI and put her on Macrobid. She is had 2 doses but feels like she is worse with nausea, but no vomiting, generalized aches and low back pain and dizziness. She feels generally weak.) Review of Systems Ten Systems: 10 systems reviewed and negative Constitutional: reports: Fatigue. denies: Fever, Chills GI: reports: Nausea. 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 HEENT: Other - Present Medications Home Medications: Ambulatory Orders Medication Instructions Recorded Confirmed Venlafaxine [Effexor] 150 mg PO BID 09/13/13 03/07/17 Nortriptyline [Pamelor] 50 mg PO QPM 03/11/14 03/07/17 oxyCODONE/ACET 5/325 [Percocet 5 1 each PO Q4-6H PRN #10 tablet 05/06/15 03/07/17 mg/325 mg] Lorazepam [Ativan] 1 mg PO BID PRN #14 tablet 05/11/16 03/07/17 Phenytoin [Dilantin] 100 mg PO TID #60 capsule 06/03/16 03/07/17 Cyclobenzaprine [Flexeril] 10 mg PO TID PRN #20 tablet 03/01/17 03/07/17 Polyethylene Glycol 3350 [Miralax] 17 gm PO DAILY PRN #1 bottle 03/01/17 03/07/17 Metoprolol Tartrate [Lopressor] 25 mg PO TID 03/07/17 03/07/17 Cyclobenzaprine [Flexeril] 10 mg PO TID PRN #20 tablet 06/02/18 Meloxicam [Mobic] 15 mg PO DAILY PRN #20 tablet 06/02/18 Methylprednisolone [Medrol] 4 mg PO DAILY #1 tab.ds.pk 06/02/18 Sulfamethoxazole/Trimethoprim 1 each PO BID #14 tablet 01/25/19 [Sulfamethoxazole-Tmp Ds Tablet] - Allergies Allergies/Adverse Reactions: Allergies Allergy/AdvReac Type Severity Reaction Status Date / Time Penicillins Allergy Hives Verified 01/25/19 18:27 acyclovir AdvReac Severe sick to Verified 01/25/19 18:27 stomach; vomiting; - Social History Does the pt smoke?: Yes Smoking Status: Current every day smoker Does the pt drink ETOH?: No Does the pt have substance abuse?: No - Immunizations Immunizations are current?: Yes - POLST Patient has POLST: No PD ED PE NORMAL - Vitals Vital signs reviewed: Yes - General General: Alert and oriented X 3, No acute distress - Abdomen Abdomen: Normal bowel sounds, Soft, Non tender - Back Back: No CVA TTP, No spinal TTP - Neuro Neuro: Alert and oriented X 3, Normal speech Results - Vitals Vitals: Vital Signs - 24 hr 01/25/19 01/25/19 18:22 18:35 Temperature 36.9 C Heart Rate 113 H Respiratory 18 18 Rate Blood Pressure 133/83 H O2 Saturation 100 Oxygen O2 Source Room air - Labs Labs: Laboratory Tests 01/25/19 01/25/19 18:39 18:39 Urine Color YELLOW Urine Clarity CLEAR Urine pH 6.0 Ur Specific [place] 1.025 1.025 Urine Protein TRACE Urine Glucose (UA) NEGATIVE Urine Ketones TRACE Urine Occult Blood MODERATE H Urine Nitrite NEGATIVE Urine Bilirubin NEGATIVE Urine Urobilinogen 0.2 (NORMAL) Ur Leukocyte Esterase NEGATIVE Urine RBC 6-10 H Urine WBC 0-3 Ur Squamous Epith Cells MANY Squamous H Urine Bacteria Rare Urine Mucus Marked Strands Ur Microscopic Review INDICATED Urine Culture Comments NOT INDICATED Urine HCG, Qual NEGATIVE PD MEDICAL DECISION MAKING - ED course ED course: 38-year-old woman diagnosed with UTI yesterday at her doctor's office presents with worsening symptoms, dizziness and feeling dehydrated with nausea. Probably early pyelonephritis although her urine now appears more sterilized from the Macrobid. There is also an anxiety component. She is tearful at times in the room, when I asked her about that she says she is worried about taking care of her children. She felt better after IV fluids and reassurance. Departure - Departure Disposition: 01 Home, Self Care Clinical Impression: Weakness, Dehydration, mild, Pyelonephritis Condition: Good Record reviewed to determine appropriate education?: Yes Instructions: Pyelonephritis Dc Prescriptions: Sulfamethoxazole/Trimethoprim [Sulfamethoxazole-Tmp Ds Tablet] 1 each PO BID #14 tablet Comments: Call your doctor to arrange a follow-up appointment, make the next available appointment. In the interim, return anytime if worse or if new symptoms develop.
[2019-01-25 18:53] LABS: GLUCOSE, URINE (UA) NEGATIVE (NEGATIVE); KETONES,URINE (UA) TRACE mg/dL (NEGATIVE); LEUKOCYTE ESTERASE, URINE NEGATIVE (NEGATIVE); NITRITE,URINE NEGATIVE (NEGATIVE); OCCULT BLOOD,URINE MODERATE (NEGATIVE); PROTEIN,URINE TRACE mg/dL (NEGATIVE); UROBILINOGEN,URINE 0.2 (NORMAL) E.U./dL (NORMAL)
[2019-01-25 18:58] LABS: BILIRUBIN,URINE NEGATIVE (NEGATIVE); CLARITY,URINE CLEAR (CLEAR); HCG UR QUAL NEGATIVE; ICTOTEST,URINE NEGATIVE
[2019-01-25 19:12] LABS: BACTERIA,URINE Rare /HPF (None Seen); MUCUS,URINE Marked Strands; SQUAMOUS EPITHELIAL CELL,UR MANY Squamous (<= Few)
[2019-01-25 20:01] VITALS: BP 134/99
== END 2019-01-25 20:01 | disposition home or self-care (01) ==
LOC: ED 18:21
DX: N12 Tubulo-interstitial nephritis, not specified as acute or chronic (principal); E86.0 Dehydration; R53.1 Weakness; R41.9 Unspecified symptoms and signs involving cognitive functions and awareness; F17.200 Nicotine dependence, unspecified, uncomplicated
CPT/HCPCS: 81001; 81003; 81025; 87086; 96365; 99283

== ENCOUNTER 2019-01-27 20:57 | Outpatient (CLI) | payer MEDICAID | END 2019-01-27 20:58 | disposition critical access hospital (66) | LOC: EMS 20:57 | PROVIDERS: ATTEND Surgery | DX: R56.9 Unspecified convulsions (principal) | CPT/HCPCS: A0425; A0427; A0999 ==

== ENCOUNTER 2019-01-27 21:18 | Emergency (ER) | payer MEDICAID ==
[2019-01-27] MEDS ORDERED: LORazepam 2 MG/ML VIAL IVP STA (21:29)
--- NOTE | 2019-01-27 21:55 | ED Physician Documentation ---
PD HPI SEIZURE - Stated complaint Stated Complaint: SZ - Chief complaint Chief Complaint: Neuro - History obtained from History obtained from: Patient - History of Present Illness Timing - onset: Today Witnessed: Witnessed Number of seizures: Lasted - seconds (20), Recovered between seizure Description of seizure activity: Generalized Injury during seizure: None Pain level max: 0 Pain level now: 0 Associated symptoms: No: None, Unknown, Headache, Vision changes, Chest pain, Palpitations, Diaphoresis, Dyspnea, Nausea / vomiting History of seizures: Known seizure disorder, Other (benzo withdrawal seizures in the past.) Recently seen: Not recently seen - Additional information Additional information: ran out of ativan 3 days ago. Review of Systems Ten Systems: 10 systems reviewed and negative Constitutional: denies: Fever, Chills Ears: denies: Ear pain Nose: denies: Rhinorrhea / runny nose, Congestion Throat: denies: Sore throat Cardiac: denies: Chest pain / pressure Respiratory: denies: Cough GI: denies: Abdominal Pain, Nausea, Vomiting, Diarrhea Skin: denies: Rash Musculoskeletal: denies: Neck pain, Back pain Neurologic: reports: Seizure. 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 : None HEENT: None Psych: Depression, Anxiety Musculoskeletal: None Derm: None - Past Surgical History Past Surgical History: Yes /UTILITY SERVICE WORKER: section, Tubal ligation, Hysterectomy HEENT: Other - Present Medications Home Medications: Ambulatory Orders Medication Instructions Recorded Confirmed Venlafaxine [Effexor] 150 mg PO BID 09/13/13 03/07/17 Nortriptyline [Pamelor] 50 mg PO QPM 03/11/14 03/07/17 oxyCODONE/ACET 5/325 [Percocet 5 1 each PO Q4-6H PRN #10 tablet 05/06/15 03/07/17 mg/325 mg] Lorazepam [Ativan] 1 mg PO BID PRN #14 tablet 05/11/16 03/07/17 Phenytoin [Dilantin] 100 mg PO TID #60 capsule 06/03/16 03/07/17 Cyclobenzaprine [Flexeril] 10 mg PO TID PRN #20 tablet 03/01/17 03/07/17 Polyethylene Glycol 3350 [Miralax] 17 gm PO DAILY PRN #1 bottle 03/01/17 03/07/17 Metoprolol Tartrate [Lopressor] 25 mg PO TID 03/07/17 03/07/17 Cyclobenzaprine [Flexeril] 10 mg PO TID PRN #20 tablet 06/02/18 Meloxicam [Mobic] 15 mg PO DAILY PRN #20 tablet 06/02/18 Methylprednisolone [Medrol] 4 mg PO DAILY #1 tab.ds.pk 06/02/18 Sulfamethoxazole/Trimethoprim 1 each PO BID #14 tablet 01/25/19 [Sulfamethoxazole-Tmp Ds Tablet] - Allergies Allergies/Adverse Reactions: Allergies Allergy/AdvReac Type Severity Reaction Status Date / Time Penicillins Allergy Hives Verified 01/25/19 18:27 acyclovir AdvReac Severe sick to Verified 01/25/19 18:27 stomach; vomiting; - Social History Does the pt smoke?: Yes Smoking Status: Current every day smoker Does the pt drink ETOH?: No Does the pt have substance abuse?: No - Immunizations Immunizations are current?: Yes - POLST Patient has POLST: No PD ED PE NORMAL - Vitals Vital signs reviewed: Yes - General General: Alert and oriented X 3, Well developed/nourished - HEENT HEENT: PERRL, Moist mucous membranes - Neck Neck: Supple, no meningeal sign - Cardiac Cardiac: RRR, Strong equal pulses - Respiratory Respiratory: No respiratory distress, Clear bilaterally - Abdomen Abdomen: Soft, Non tender, Non distended - Back Back: No spinal TTP - Derm Derm: Warm and dry, No rash - Extremities Extremities: Other (TTP over the dorsum of the R foot with bruising. NVI. o/w normal exam of extremities) - Neuro Neuro: Alert and oriented X 3 - Psych Psych: Normal mood, Normal affect Results - Vitals Vitals: Vital Signs - 24 hr 01/27/19 01/27/19 01/27/19 21:21 21:27 21:57 Temperature 36.4 C L Heart Rate 92 92 85 Respiratory 16 16 11 L Rate Blood Pressure 101/72 101/72 93/50 L O2 Saturation 100 100 100 01/27/19 01/27/19 01/27/19 22:28 22:30 23:00 Temperature Heart Rate 84 84 86 Respiratory 12 12 18 Rate Blood Pressure 94/58 L 94/58 L 105/76 O2 Saturation 100 100 100 01/27/19 01/28/19 23:30 00:00 Temperature Heart Rate 86 85 Respiratory 14 12 Rate Blood Pressure 91/54 L 96/70 O2 Saturation 100 100 Oxygen O2 Source Nasal cannula - EKG (time done) 2131 Rate: Rate (enter#) (93) Rhythm: NSR [place]: Normal Intervals: Normal [place] QRS: Normal Ischemia: Normal ST segments - Labs Labs: Laboratory Tests 01/27/19 01/27/19 01/27/19 22:10 22:10 23:00 WBC 9.0 RBC 3.81 L Hgb 11.8 L Hct 35.8 L MCV 94.0 MCH 31.0 MCHC 33.0 RDW 13.0 Plt Count 227 MPV 9.4 Neut # (Auto) 5.9 Lymph # (Auto) 1.9 [place] # (Auto) 0.5 Eos # (Auto) 0.6 Baso # (Auto) 0.0 Absolute Nucleated RBC 0.00 Nucleated RBC % 0.0 Sodium 133 L Potassium 4.5 Chloride 100 L Carbon Dioxide 20 L Anion Gap 13.0 BUN 17 Creatinine 0.9 Estimated GFR (MDRD) 70 L Glucose 108 H Calcium 8.6 Total Bilirubin 0.5 AST 28 ALT 29 Alkaline Phosphatase 60 Total Protein 7.1 Albumin 3.7 Globulin 3.4 Albumin/Globulin Ratio 1.1 Lipase 21 L Urine Color Urine Clarity Urine pH Ur Specific [place] Urine Protein Urine Glucose (UA) Urine Ketones Urine Occult Blood Urine Nitrite Urine Bilirubin Urine Urobilinogen Ur Leukocyte Esterase Ur Microscopic Review Urine Culture Comments Urine HCG, Qual Urine Opiates Screen NEGATIVE Ur Oxycodone Screen POSITIVE H Urine Methadone Screen NEGATIVE Ur Propoxyphene Screen NEGATIVE Ur Barbiturates Screen POSITIVE H Ur Tricyclics Screen POSITIVE H Ur Phencyclidine Scrn NEGATIVE Ur Amphetamine Screen NEGATIVE U Methamphetamines Scrn NEGATIVE U Benzodiazepines Scrn POSITIVE H Urine Cocaine Screen NEGATIVE U Cannabinoids Screen NEGATIVE 01/27/19 23:00 WBC RBC Hgb Hct MCV MCH MCHC RDW Plt Count MPV Neut # (Auto) Lymph # (Auto) [place] # (Auto) Eos # (Auto) Baso # (Auto) Absolute Nucleated RBC Nucleated RBC % Sodium Potassium Chloride Carbon Dioxide Anion Gap BUN Creatinine Estimated GFR (MDRD) Glucose Calcium Total Bilirubin AST ALT Alkaline Phosphatase Total Protein Albumin Globulin Albumin/Globulin Ratio Lipase Urine Color YELLOW Urine Clarity CLEAR Urine pH 6.0 Ur Specific [place] >=1.030 H Urine Protein TRACE Urine Glucose (UA) NEGATIVE Urine Ketones NEGATIVE Urine Occult Blood NEGATIVE Urine Nitrite NEGATIVE Urine Bilirubin NEGATIVE Urine Urobilinogen 0.2 (NORMAL) Ur Leukocyte Esterase NEGATIVE Ur Microscopic Review NOT INDICATED Urine Culture Comments NOT INDICATED Urine HCG, Qual NEGATIVE Urine Opiates Screen Ur Oxycodone Screen Urine Methadone Screen Ur Propoxyphene Screen Ur Barbiturates Screen Ur Tricyclics Screen Ur Phencyclidine Scrn Ur Amphetamine Screen U Methamphetamines Scrn U Benzodiazepines Scrn Urine Cocaine Screen U Cannabinoids Screen - Rads (name of study) R foot xray Radiology: Prelim report reviewed, EMP read contemporaneously, See rad report (Soft tissue swelling without fracture or dislocation) PD MEDICAL DECISION MAKING - ED course Complexity details: reviewed old records, reviewed results, re-evaluated patient, considered differential, d/w patient, d/w family ED course: 38-year-old female presents to the emergency department with A benzodiazepine withdrawal seizure. Given Ativan and seizure stopped. She has been out of her medications for 3 days. She picks up her refill in the morning. She also states that she is out of her oxycodone. She filled 120 Percocet pills less than 10 days ago. Informed her that I will not refill this for her at this time. She will contact her doctor in the morning. She was placed in a postoperative shoe for the foot contusion. No other acute injuries. Patient and family counseled regarding signs and symptoms for which I believe and urgent re-evaluation would be necessary. Patient with good understanding of and agreement to plan and is comfortable going home at this time This document was made in part using voice recognition software. While efforts are made to proofread this document, sound alike and grammatical errors may occur. Departure - Departure Disposition: 01 Home, Self Care Clinical Impression: Seizure Benzodiazepine withdrawal Qualifiers: Complication of substance-induced condition: with unspecified complication Qualified Code(s): F13.239 - Sedative, hypnotic or anxiolytic dependence with withdrawal, unspecified Contusion of foot, right Qualifiers: Encounter type: initial encounter Qualified Code(s): S90.31XA - Contusion of right foot, initial encounter Condition: Good Instructions: ED Withdrawal Benzodiazepine Follow-Up: Yeyo Garcia MD [Primary Care Provider] - 01/28/19 Comments: Restart your Ativan in the morning. Follow-up with your doctor tomorrow to ensure that you receive your Ativan as withdrawal leads to seizures in you. You should not be driving as well. The x-ray of your foot is normal tonight. You can wear the postoperative shoe for comfort. Discharge Date/Time: 01/28/19 00:19
[2019-01-27 22:19] LABS: BASOPHILS % (AUTO) 0.6 %; EOSINOPHILS # (AUTO) 0.6 10^3/uL (0.0-0.7); HGB - HEMOGLOBIN 11.8 g/dL (12.0-16.0); LYMPHOCYTES # (AUTO) 1.9 10^3/uL (1.5-3.5); LYMPHOCYTES % (AUTO) 21.3 %; MEAN PLATELET VOLUME 9.4 fL (7.9-10.8); MONOCYTES # (AUTO) 0.5 10^3/uL (0.0-1.0); MONOCYTES % (AUTO) 5.2 %; NEUTROPHILS # (AUTO) 5.9 10^3/uL (1.5-6.6); NEUTROPHILS % (AUTO) 65.9 %; PLT - PLATELET COUNT 227 10^3/uL (130-450); RED BLOOD COUNT 3.81 10^6/uL (4.20-5.40)
[2019-01-27 22:30] LABS: ALBUMIN 3.7 g/dL (3.2-5.5); ALBUMIN/GLOBULIN RATIO 1.1 (1.0-2.2); BILIRUBIN,TOTAL 0.5 mg/dL (0.2-1.0); CALCIUM 8.6 mg/dL (8.5-10.3); CREATININE 0.9 mg/dL (0.4-1.0); TOTAL PROTEIN 7.1 g/dL (6.7-8.2)
[2019-01-27 23:09] LABS: MUDS CUTOFF CONCENTRATIONS CUTOFF CONC BELOW:
[2019-01-27 23:12] LABS: BILIRUBIN,URINE NEGATIVE (NEGATIVE); GLUCOSE, URINE (UA) NEGATIVE (NEGATIVE); KETONES,URINE (UA) NEGATIVE (NEGATIVE); LEUKOCYTE ESTERASE, URINE NEGATIVE (NEGATIVE); NITRITE,URINE NEGATIVE (NEGATIVE); OCCULT BLOOD,URINE NEGATIVE (NEGATIVE); PROTEIN,URINE TRACE mg/dL (NEGATIVE); UROBILINOGEN,URINE 0.2 (NORMAL) E.U./dL (NORMAL)
[2019-01-27 23:14] LABS: CLARITY,URINE CLEAR (CLEAR); HCG UR QUAL NEGATIVE
[2019-01-27 23:23] LABS: AMPHETAMINE SCREEN,URINE NEGATIVE (NEGATIVE); BENZODIAZEPINES SCREEN, URINE POSITIVE (NEGATIVE); COCAINE SCREEN URINE NEGATIVE (NEGATIVE); METHADONE SCREEN, URINE NEGATIVE (NEGATIVE); METHAMPHETAMINES SCREEN, URINE NEGATIVE (NEGATIVE); OPIATE SCREEN, URINE NEGATIVE (NEGATIVE); OXYCODONE SCREEN, URINE POSITIVE (NEGATIVE); PROPOXYPHENE SCREEN, URINE NEGATIVE (NEGATIVE); TRICYCLIC ANTIDEPRESSANT,URINE POSITIVE (NEGATIVE)
--- NOTE | 2019-01-27 23:53 | XRAY Report ---
Reason: R foot pain s/p seizure Procedure Date: 01/27/2019 Accession Number: [id number] / [id number] Procedure: XR - Foot 3 View RT CPT Code: FULL RESULT: EXAM: RIGHT FOOT RADIOGRAPHY EXAM DATE: 01/27/2019 11:37 PM. CLINICAL HISTORY: R foot pain s/p seizure. COMPARISON: XR FOOT COMPLETE MIN 3 VIEWS 06/06/2009 6:30 PM. TECHNIQUE: 3 views. FINDINGS: Bones: Normal. No fractures or bone lesions. Joints: Normal. No subluxations. Soft Tissues: Soft tissue swelling. No radiopaque foreign body. IMPRESSION: Soft tissue swelling, but no evidence of fracture or radiopaque foreign body. RADIA
[2019-01-28] MEDS ORDERED: oxyCODONE 5 MG TABLET PO STA (00:04)
[2019-01-28 00:05] VITALS: BP 96/70
== END 2019-01-28 00:19 | disposition home or self-care (01) ==
LOC: EDUNIT# → ED 21:18
DX: R56.9 Unspecified convulsions (principal); F13.239 Sedative, hypnotic or anxiolytic dependence with withdrawal, unspecified; T42.4X6A Underdosing of benzodiazepines, initial encounter; S90.31XA Contusion of right foot, initial encounter; F17.200 Nicotine dependence, unspecified, uncomplicated; Z91.138 Patient's unintentional underdosing of medication regimen for other reason; X58.XXXA Exposure to other specified factors, initial encounter
CPT/HCPCS: 36415; 73630; 80053; 80306; 81003; 81025; 83690; 85025; 93005; 96374; 99283; 99284; A9270; J2060; 81001; 87086

== ENCOUNTER 2019-01-31 12:22 | Emergency (ER) | payer MEDICAID ==
[2019-01-31 12:28] VITALS: BP 113/68
[2019-01-31] MEDS ORDERED: IBUPROFEN 800 MG TABLET PO STA (13:18)
--- NOTE | 2019-01-31 13:20 | ED Physician Documentation ---
PD HPI LOWER EXT INJURY - Stated complaint Stated Complaint: R FOOT SWELLING - Chief complaint Chief Complaint: Ext Problem - History obtained from History obtained from: Patient - History of Present Illness PD HPI LOW EXT INJURY LOCATION: Right, Ankle, Foot Type of injury: Other (injurred during a seizure 3 days ago.) Where injury occurred: Home Timing - onset: How many days ago (3) Timing - duration: Days (3) Timing - details: Abrupt onset Pain level max: 8 Pain level now: 8 Improved by: Rest, Ice, Immobilization Worsened by: Moving, Palpating Associated symptoms: Swelling, Discolored (bruising). 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 : None HEENT: None Psych: Depression, Anxiety Musculoskeletal: None Derm: None - Past Surgical History Past Surgical History: Yes /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: section, Tubal ligation, Hysterectomy HEENT: Other - Present Medications Home Medications: Ambulatory Orders Medication Instructions Recorded Confirmed Venlafaxine [Effexor] 150 mg PO BID 09/13/13 03/07/17 Nortriptyline [Pamelor] 50 mg PO QPM 03/11/14 03/07/17 oxyCODONE/ACET 5/325 [Percocet 5 1 each PO Q4-6H PRN #10 tablet 05/06/15 03/07/17 mg/325 mg] Lorazepam [Ativan] 1 mg PO BID PRN #14 tablet 05/11/16 03/07/17 Phenytoin [Dilantin] 100 mg PO TID #60 capsule 06/03/16 03/07/17 Cyclobenzaprine [Flexeril] 10 mg PO TID PRN #20 tablet 03/01/17 03/07/17 Polyethylene Glycol 3350 [Miralax] 17 gm PO DAILY PRN #1 bottle 03/01/17 Metoprolol Tartrate [Lopressor] 25 mg PO TID 03/07/17 03/07/17 Cyclobenzaprine [Flexeril] 10 mg PO TID PRN #20 tablet 06/02/18 Meloxicam [Mobic] 15 mg PO DAILY PRN #20 tablet 06/02/18 Methylprednisolone [Medrol] 4 mg PO DAILY #1 tab.ds.pk 06/02/18 Sulfamethoxazole/Trimethoprim 1 each PO BID #14 tablet 01/25/19 [Sulfamethoxazole-Tmp Ds Tablet] - Allergies Allergies/Adverse Reactions: Allergies Allergy/AdvReac Type Severity Reaction Status Date / Time Penicillins Allergy Hives Verified 01/31/19 12:29 acyclovir AdvReac Severe sick to Verified 01/31/19 12:29 stomach; vomiting; - Social History Does the pt smoke?: Yes Smoking Status: Current every day smoker Does the pt drink ETOH?: No Does the pt have substance abuse?: No - Immunizations Immunizations are current?: Yes - POLST Patient has POLST: No PD ED PE NORMAL - Vitals Vital signs reviewed: Yes - General General: Alert and oriented X 3, No acute distress - Derm Derm: Warm and dry - Extremities Extremities: Other (Bruising to the right ankle and foot. Swelling present as well. No focal tenderness. Neurovascularly intact.) - Neuro Neuro: Alert and oriented X 3 Results - Vitals Vitals: Vital Signs - 24 hr 01/31/19 01/31/19 12:23 13:24 Temperature 36.7 C Heart Rate 103 H Respiratory 14 Rate Blood Pressure 113/68 O2 Saturation 98 Oxygen O2 Source Room air - Rads (name of study) R ankle xray Radiology: Prelim report reviewed, EMP read contemporaneously, See rad report (Mild soft tissue swelling at right ankle. No acute displaced fracture or malalignment. ) R foot xray Radiology: Prelim report reviewed, EMP read contemporaneously, See rad report (Mild soft tissue swelling at right forefoot. No acute displaced fracture or malalignment. ) PD MEDICAL DECISION MAKING - ED course Complexity details: reviewed old records, reviewed results, re-evaluated patient, considered differential, d/w patient, d/w family ED course: Patient with a right foot/ankle sprain versus contusion. No acute findings on x-ray. She has oxycodone at home for pain. Placed in a walking boot. Patient counseled regarding signs and symptoms for which I believe and urgent re- evaluation would be necessary. Patient with good understanding of and agreement to plan and is comfortable going home at this time This document was made in part using voice recognition software. While efforts are made to proofread this document, sound alike and grammatical errors may occur. Neurovascular intact Departure - Departure Disposition: 01 Home, Self Care Clinical Impression: Sprain of foot, right Qualifiers: Encounter type: initial encounter Qualified Code(s): S93.601A - Unspecified sprain of right foot, initial encounter Sprain of right ankle Qualifiers: Encounter type: initial encounter Involved ligament of ankle: unspecified ligament Qualified Code(s): S93.401A - Sprain of unspecified ligament of right ankle, initial encounter Condition: Good Instructions: ED Sprain Foot, ED Sprain Ankle Follow-Up: Yeyo Garcia MD [Primary Care Provider] - Within 1 week Comments: Wear the boot as needed for comfort. Return if you worsen. Discharge Date/Time: 01/31/19 13:37
--- NOTE | 2019-01-31 13:34 | XRAY Report ---
Reason: pain, swelling Procedure Date: 01/31/2019 Accession Number: [id number] / [id number] Procedure: XR - Ankle 3 View RT CPT Code: FULL RESULT: EXAM: RIGHT ANKLE RADIOGRAPHY EXAM DATE: 01/31/2019 12:56 PM. CLINICAL HISTORY: Pain, swelling. COMPARISON: None. TECHNIQUE: 3 views. FINDINGS: Bones: Normal. No fractures or bone lesions. Joints: Normal. No effusion. No subluxations. The ankle mortise is normally aligned. Soft Tissues: Mild soft tissue swelling is seen at right ankle IMPRESSION: Mild soft tissue swelling at right ankle. No acute displaced fracture or malalignment. RADIA
--- NOTE | 2019-01-31 13:36 | XRAY Report ---
Reason: pain, swelling, bruising Procedure Date: 01/31/2019 Accession Number: [id number] / [id number] Procedure: XR - Foot 3 View RT CPT Code: FULL RESULT: EXAM: RIGHT FOOT RADIOGRAPHY EXAM DATE: 01/31/2019 12:56 PM. CLINICAL HISTORY: Pain, swelling, bruising. COMPARISON: FOOT 3 VIEW RT 01/27/2019 11:12 PM. TECHNIQUE: 3 views. FINDINGS: Bones: Normal. No fractures or bone lesions. Joints: Normal. No subluxations. Soft Tissues: Mild soft tissue swelling is seen at the right forefoot. IMPRESSION: No acute displaced fracture or malalignment. Mild soft tissue swelling at right forefoot. No acute osseous abnormality. RADIA
== END 2019-01-31 13:37 | disposition home or self-care (01) ==
LOC: ED 12:22
DX: S93.601A Unspecified sprain of right foot, initial encounter (principal); S93.401A Sprain of unspecified ligament of right ankle, initial encounter; X58.XXXA Exposure to other specified factors, initial encounter; Y92.009 Unspecified place in unspecified non-institutional (private) residence as the place of occurrence of the external cause; G40.909 Epilepsy, unspecified, not intractable, without status epilepticus; F17.200 Nicotine dependence, unspecified, uncomplicated
CPT/HCPCS: 73610; 73630; 99283; A9270

== ENCOUNTER 2019-03-12 13:52 | Emergency (ER) | payer MEDICAID ==
[2019-03-12] MEDS ORDERED: KETOROLAC 60 MG/2 ML VIAL IM STA (14:24)
[2019-03-12] MEDS ORDERED: PROMETHAZINE 25 MG/1 ML VIAL IM STA (14:24)
--- NOTE | 2019-03-12 14:24 | ED Physician Documentation ---
History of Present Illness - Stated complaint Stated Complaint: FEVER - Chief complaint Chief Complaint: General - History obtained from History obtained from: Patient - History of Present Illness Timing: Yesterday (38-year-old woman with frequent UTIs presents with dysuria frequency and some incontinence with hematuria since yesterday as well as low back pain and fever to 101. She had a UTI treated about 2 weeks ago in the office with sulfa, it is unknown if a culture was done.) Review of Systems Ten Systems: 10 systems reviewed and negative Constitutional: reports: Fever, Chills, Fatigue Respiratory: denies: Dyspnea, Cough GI: reports: Abdominal Pain, Nausea, Vomiting. 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 : None HEENT: None Psych: Depression, Anxiety Musculoskeletal: None Derm: None - Past Surgical History Past Surgical History: Yes /POLICE CHIEF: section, Tubal ligation, Hysterectomy HEENT: Other - Present Medications Home Medications: Ambulatory Orders Medication Instructions Recorded Confirmed Venlafaxine [Effexor] 150 mg PO BID 09/13/13 03/07/17 Nortriptyline [Pamelor] 50 mg PO QPM 03/11/14 03/07/17 oxyCODONE/ACET 5/325 [Percocet 5 1 each PO Q4-6H PRN #10 tablet 05/06/1509/23 mg/325 mg] Lorazepam [Ativan] 1 mg PO BID PRN #14 tablet 05/11/16 03/07/17 Phenytoin [Dilantin] 100 mg PO TID #60 capsule 06/03/16 03/07/17 Cyclobenzaprine [Flexeril] 10 mg PO TID PRN #20 tablet 03/01/17 03/07/17 Polyethylene Glycol 3350 [Miralax] 17 gm PO DAILY PRN #1 bottle 03/01/17 03/07/17 Metoprolol Tartrate [Lopressor] 25 mg PO TID 03/07/17 03/07/17 Cyclobenzaprine [Flexeril] 10 mg PO TID PRN #20 tablet 06/02/18 Meloxicam [Mobic] 15 mg PO DAILY PRN #20 tablet 06/02/18 Methylprednisolone [Medrol] 4 mg PO DAILY #1 tab.ds.pk 06/02/18 Sulfamethoxazole/Trimethoprim 1 each PO BID #14 tablet 01/25/19 [Sulfamethoxazole-Tmp Ds Tablet] Ibuprofen [Motrin] 800 mg PO Q8H PRN #30 tablet 03/12/19 Promethazine [Phenergan] 25 mg PO Q6H PRN #10 tab 03/12/19 - Allergies Allergies/Adverse Reactions: Allergies Allergy/AdvReac Type Severity Reaction Status Date / Time Penicillins Allergy Hives Verified 03/12/19 14:05 acyclovir AdvReac Severe sick to Verified 03/12/19 14:05 stomach; vomiting; - Social History Does the pt smoke?: Yes Smoking Status: Current every day smoker Does the pt drink ETOH?: No Does the pt have substance abuse?: No - Immunizations Immunizations are current?: Yes - POLST Patient has POLST: No PD ED PE NORMAL - Vitals Vital signs reviewed: Yes - General General: Alert and oriented X 3, No acute distress - Neck Neck: Supple, no meningeal sign, No bony TTP - Abdomen Abdomen: Normal bowel sounds, Non tender - Back Back: No CVA TTP - Neuro Neuro: Alert and oriented X 3, Normal speech Results - Vitals Vitals: Vital Signs - 24 hr 03/12/19 14:03 Temperature 36.0 C L Heart Rate 92 Respiratory 19 Rate Blood Pressure 107/63 O2 Saturation 98 Oxygen O2 Source Room air - Labs Labs: Laboratory Tests 03/12/19 14:20 Urine Color YELLOW Urine Clarity CLEAR Urine pH 6.5 Ur Specific [place] 1.020 Urine Protein NEGATIVE Urine Glucose (UA) NEGATIVE Urine Ketones NEGATIVE Urine Occult Blood SMALL H Urine Nitrite NEGATIVE Urine Bilirubin NEGATIVE Urine Urobilinogen 0.2 (NORMAL) Ur Leukocyte Esterase NEGATIVE Urine RBC 0-5 Urine WBC 0-3 Ur Squamous Epith Cells MANY Squamous H Urine Bacteria None Seen Urine Mucus Marked Strands Ur Microscopic Review INDICATED Urine Culture Comments NOT INDICATED Urine HCG, Qual NEGATIVE PD MEDICAL DECISION MAKING - ED course ED course: 38-year-old woman presents with what she thought was a fever at home due to UTI. No fever here, no UTI here. She was also concerned about her right foot which she had recent surgery on, the incision over the dorsal midfoot is clean dry and intact without redness, swelling, drainage, or tenderness. She does have some diarrhea. No URI symptoms or cough. Departure - Departure Disposition: 01 Home, Self Care Clinical Impression: Viral syndrome Condition: Good Record reviewed to determine appropriate education?: Yes Health Concerns: fever, possible uti Plan of Treatment: no uti, R foot without infection Care Goals: improve symptoms Assessment: as above Instructions: ED Viral Syndrome Prescriptions: Ibuprofen [Motrin] 800 mg PO Q8H PRN #30 tablet PRN Reason: PAIN &/OR FEVER Promethazine [Phenergan] 25 mg PO Q6H PRN #10 tab PRN Reason: Nausea / Vomiting Comments: Call your doctor to arrange a follow-up appointment, make the next available appointment. In the interim, return anytime if worse or if new symptoms develop.
[2019-03-12 14:36] LABS: BILIRUBIN,URINE NEGATIVE (NEGATIVE); GLUCOSE, URINE (UA) NEGATIVE (NEGATIVE); KETONES,URINE (UA) NEGATIVE (NEGATIVE); LEUKOCYTE ESTERASE, URINE NEGATIVE (NEGATIVE); NITRITE,URINE NEGATIVE (NEGATIVE); OCCULT BLOOD,URINE SMALL (NEGATIVE); PH,URINE 6.5 PH (5.0-7.5); PROTEIN,URINE NEGATIVE (NEGATIVE); UROBILINOGEN,URINE 0.2 (NORMAL) E.U./dL (NORMAL)
[2019-03-12 14:47] LABS: CLARITY,URINE CLEAR (CLEAR); HCG UR QUAL NEGATIVE
[2019-03-12 15:05] LABS: BACTERIA,URINE None Seen /HPF (None Seen); RBC,URINE 0-5 /HPF (0-5); SQUAMOUS EPITHELIAL CELL,UR MANY Squamous (<= Few)
[2019-03-12 15:06] LABS: MUCUS,URINE Marked Strands
[2019-03-12 15:19] VITALS: BP 98/60
== END 2019-03-12 15:19 | disposition home or self-care (01) ==
LOC: ED 13:52
DX: B34.9 Viral infection, unspecified (principal); F17.200 Nicotine dependence, unspecified, uncomplicated
CPT/HCPCS: 81001; 81003; 81025; 87086; 96372; 99283

== ENCOUNTER 2019-04-24 17:34 | Emergency (ER) | payer MEDICAID ==
--- NOTE | 2019-04-24 18:32 | ED Physician Documentation ---
PD HPI GI BLEED - Stated complaint Stated Complaint: RECTAL BLEED - Chief complaint Chief Complaint: Abd Pain - History obtained from History obtained from: Patient - History of Present Illness Timing - onset: How many days ago (few) Timing - duration: Days (few) Timing - details: Gradual onset, Still present (had noted red blood in toilet and on paper after BMs few days ago, and has persisted, with more amount today. Is bright red without clots. Pain at rectal area. No abd pain per se. Has had some firm stools but not pushing hard for BMs.) Associated symptoms: BRBPR, Constipation. No: Maroon stool, Black/tarry stool, Diarrhea, Abdominal pain Contributing factors: No: Sick contact, Bad food Similar symptoms before: Has not had sx before Review of Systems Constitutional: denies: Fever, Myalgias Nose: denies: Rhinorrhea / runny nose, Congestion Throat: denies: Sore throat Respiratory: denies: Cough GI: reports: Constipation (mild). 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: 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, Ovarian cysts : None HEENT: None Psych: Depression, Anxiety Musculoskeletal: None Derm: None - Past Surgical History Past Surgical History: Yes /WAREHOUSE INCENTIVE SELECTOR: section, Tubal ligation, Hysterectomy HEENT: Other - Present Medications Home Medications: Ambulatory Orders Medication Instructions Recorded Confirmed Venlafaxine [Effexor] 150 mg PO BID 09/13/13 03/07/17 Nortriptyline [Pamelor] 50 mg PO QPM 03/11/14 03/07/17 oxyCODONE/ACET 5/325 [Percocet 5 1 each PO Q4-6H PRN #10 tablet 05/06/15 03/07/17 mg/325 mg] Lorazepam [Ativan] 1 mg PO BID PRN #14 tablet 05/11/16 03/07/17 Phenytoin [Dilantin] 100 mg PO TID #60 capsule 06/03/16 03/07/17 Cyclobenzaprine [Flexeril] 10 mg PO TID PRN #20 tablet 03/01/17 03/07/17 Polyethylene Glycol 3350 [Miralax] 17 gm PO DAILY PRN #1 bottle 03/01/1703/07 Metoprolol Tartrate [Lopressor] 25 mg PO TID 03/07/17 03/07/17 Cyclobenzaprine [Flexeril] 10 mg PO TID PRN #20 tablet 06/02/18 Meloxicam [Mobic] 15 mg PO DAILY PRN #20 tablet 06/02/18 Methylprednisolone [Medrol] 4 mg PO DAILY #1 tab.ds.pk 06/02/18 Sulfamethoxazole/Trimethoprim 1 each PO BID #14 tablet 01/25/19 [Sulfamethoxazole-Tmp Ds Tablet] Ibuprofen [Motrin] 800 mg PO Q8H PRN #30 tablet 03/12/19 Promethazine [Phenergan] 25 mg PO Q6H PRN #10 tab 03/12/19 Docusate Sodium 100 mg PO DAILY #30 capsule 04/24/19 Hydrocortisone Acetate [Anucort-Hc] 25 mg RC DAILY #5 supp.rect 04/24/19 - Allergies Allergies/Adverse Reactions: Allergies Allergy/AdvReac Type Severity Reaction Status Date / Time Penicillins Allergy Hives Verified 04/24/19 17:49 acyclovir AdvReac Severe sick to Verified 04/24/19 17:49 stomach; vomiting; - Social History Does the pt smoke?: Yes Smoking Status: Current every day smoker Does the pt drink ETOH?: No Does the pt have substance abuse?: No - Immunizations Immunizations are current?: Yes - POLST Patient has POLST: No PD ED PE NORMAL - Vitals Vital signs reviewed: Yes - General General: Alert and oriented X 3, No acute distress (a little anxious), Well developed/nourished - Cardiac Cardiac: RRR, No murmur - Respiratory Respiratory: Clear bilaterally - Abdomen Abdomen: Normal bowel sounds, Soft, Non tender, Non distended - Female Female : Deferred - Rectal Rectal: Other (daughter present in room. There are external hemorrhoids without thrombosis. There is one of them that has a small point of opening that has drops of blood out when area is stretched/palpated. Internal palpation with some reducible hemorrhoids as well. No noted bleeding from higher. ) - Back Back: No CVA TTP - Derm Derm: Normal color, Warm and dry Results - Vitals Vitals: Oxygen O2 Source Room air - Labs Labs: Laboratory Tests 04/24/19 04/24/19 04/24/19 18:24 18:24 18:33 WBC 11.3 H RBC 3.74 L Hgb 11.8 L Hct 35.7 L MCV 95.5 MCH 31.6 H MCHC 33.1 RDW 12.6 Plt Count 303 MPV 11.2 H Neut # (Auto) 6.6 Lymph # (Auto) 3.4 [place] # (Auto) 0.7 Eos # (Auto) 0.6 Baso # (Auto) 0.1 Absolute Nucleated RBC 0.00 Nucleated RBC % 0.0 Sodium 143 Potassium 3.4 L Chloride 107 Carbon Dioxide 23 Anion Gap 13.0 BUN 16 Creatinine 0.6 Estimated GFR (MDRD) 112 Glucose 100 Calcium 9.7 Total Bilirubin 0.2 AST 22 ALT 36 Alkaline Phosphatase 62 Total Protein 7.6 Albumin 4.3 Globulin 3.3 Albumin/Globulin Ratio 1.3 Lipase 30 Urine Color YELLOW Urine Clarity CLEAR Urine pH 6.0 Ur Specific [place] >=1.030 H Urine Protein TRACE Urine Glucose (UA) NEGATIVE Urine Ketones NEGATIVE Urine Occult Blood TRACE-INTA Urine Nitrite NEGATIVE Urine Bilirubin NEGATIVE Urine Urobilinogen 0.2 (NORMAL) Ur Leukocyte Esterase NEGATIVE Ur Microscopic Review NOT INDICATED Urine Culture Comments NOT INDICATED Urine HCG, Qual 04/24/19 18:33 WBC RBC Hgb Hct MCV MCH MCHC RDW Plt Count MPV Neut # (Auto) Lymph # (Auto) [place] # (Auto) Eos # (Auto) Baso # (Auto) Absolute Nucleated RBC Nucleated RBC % Sodium Potassium Chloride Carbon Dioxide Anion Gap BUN Creatinine Estimated GFR (MDRD) Glucose Calcium Total Bilirubin AST ALT Alkaline Phosphatase Total Protein Albumin Globulin Albumin/Globulin Ratio Lipase Urine Color Urine Clarity Urine pH Ur Specific [place] >=1.030 H Urine Protein Urine Glucose (UA) Urine Ketones Urine Occult Blood Urine Nitrite Urine Bilirubin Urine Urobilinogen Ur Leukocyte Esterase Ur Microscopic Review Urine Culture Comments Urine HCG, Qual NEGATIVE PD MEDICAL DECISION MAKING - ED course Complexity details: considered differential (just hemorrhoidal bleeding. ), d/w patient Departure - Departure Disposition: 01 Home, Self Care Clinical Impression: Bleeding hemorrhoids Condition: Stable Record reviewed to determine appropriate education?: Yes Instructions: ED Hemorrhoids Follow-Up: Yeyo Garcia MD [Primary Care Provider] - Prescriptions: Docusate Sodium 100 mg PO DAILY #30 capsule Hydrocortisone Acetate [Anucort-Hc] 25 mg RC DAILY #5 supp.rect Comments: You can use some Preparation H externally at the hemorrhoids. Use Anusol suppository daily for 5 days to get at the inflammation at the inner aspect of the hemorrhoids. Stay well-hydrated. Continue usual medications. Add docusate stool softener twice daily for a few days and then daily as well for a week or more. Recheck if not improved over the next several days with no further bleeding. Discharge Date/Time: 04/24/19 20:22
[2019-04-24 18:40] LABS: BASOPHILS # (AUTO) 0.1 10^3/uL (0.0-0.1); BASOPHILS % (AUTO) 0.7 %; EOSINOPHILS # (AUTO) 0.6 10^3/uL (0.0-0.7); EOSINOPHILS % (AUTO) 4.9 %; HGB - HEMOGLOBIN 11.8 g/dL (12.0-16.0); LYMPHOCYTES # (AUTO) 3.4 10^3/uL (1.5-3.5); LYMPHOCYTES % (AUTO) 29.6 %; MEAN CORPUSCULAR HEMOGLOBIN 31.6 pg (27.0-31.0); MEAN CORPUSCULAR HGB CONC 33.1 g/dL (32.0-36.0); MEAN CORPUSCULAR VOLUME 95.5 fL (81.0-99.0); MEAN PLATELET VOLUME 11.2 fL (7.9-10.8); MONOCYTES # (AUTO) 0.7 10^3/uL (0.0-1.0); MONOCYTES % (AUTO) 5.8 %; NEUTROPHILS # (AUTO) 6.6 10^3/uL (1.5-6.6); NEUTROPHILS % (AUTO) 58.5 %; PLT - PLATELET COUNT 303 10^3/uL (130-450); RED BLOOD COUNT 3.74 10^6/uL (4.20-5.40); RED CELL DISTRIBUTION WIDTH 12.6 % (12.0-15.0); WHITE BLOOD COUNT 11.3 x10^3/uL (4.8-10.8)
[2019-04-24 18:42] LABS: BILIRUBIN,URINE NEGATIVE (NEGATIVE); GLUCOSE, URINE (UA) NEGATIVE (NEGATIVE); KETONES,URINE (UA) NEGATIVE (NEGATIVE); LEUKOCYTE ESTERASE, URINE NEGATIVE (NEGATIVE); NITRITE,URINE NEGATIVE (NEGATIVE); OCCULT BLOOD,URINE TRACE-INTA (NEGATIVE); PROTEIN,URINE TRACE mg/dL (NEGATIVE); UROBILINOGEN,URINE 0.2 (NORMAL) E.U./dL (NORMAL)
[2019-04-24 18:45] LABS: CLARITY,URINE CLEAR (CLEAR); HCG UR QUAL NEGATIVE
[2019-04-24 18:53] LABS: ALBUMIN 4.3 g/dL (3.2-5.5); ALBUMIN/GLOBULIN RATIO 1.3 (1.0-2.2); BILIRUBIN,TOTAL 0.2 mg/dL (0.2-1.0); CALCIUM 9.7 mg/dL (8.5-10.3); CREATININE 0.6 mg/dL (0.4-1.0); TOTAL PROTEIN 7.6 g/dL (6.7-8.2)
[2019-04-24] MEDS ORDERED: HYDROCORTISONE 25 MG SUPPOSITORY PR STA (19:28)
[2019-04-24] MEDS ORDERED: DOCUSATE SODIUM 100 MG CAPSULE PO STA (19:28)
[2019-04-24 20:21] VITALS: BP 103/57
== END 2019-04-24 20:22 | disposition home or self-care (01) ==
LOC: ED 17:34
DX: K64.9 Unspecified hemorrhoids (principal); F17.200 Nicotine dependence, unspecified, uncomplicated
CPT/HCPCS: 36415; 80053; 81003; 81025; 83690; 85025; 99283; 99284; A9270; J3490; 81001; 87086

== ENCOUNTER 2019-08-18 10:02 | Outpatient (CLI) | payer MEDICAID ==
[2019-08-18 11:35] VITALS: BP 104/70
--- NOTE | 2019-08-18 11:35 | SLEEP CARE CONSULTATION ---
Information from patient questionnaire entered by Tamar Levy. I have reviewed and concur with the information entered by Tamar Levy. This document represents the service I personally performed and the decisions made by me, Marion Vidales, RN, MSN, CROWN ASSEMBLY MACHINE SET UP MECHANIC. History of Present Illness Reason for Visit: New patient Accompanied by: Partner (diamond) Chief Complaint: reports: Insomnia, Other (Throat swelling - difficulty swallowing - under evaluation by ENT / dancing teacher) Duration of Symptoms: 2 years - insomnia since age 15 reported difficulty initiating/maintaining Usual bedtime: 10pm Time it takes to fall asleep: 5 mins with sleep medications Snores at night: Yes (irregular) Observed to quit breathing while asleep: No Sleeps alone due to snoring: No Number of times waking at night: 1 / before medications it was 3-4 times a night Reasons for waking at night: reports: Pain (sometimes), Other (unsure). denies: Choking, Snoring, Gasping for air, Bathroom Toss, Turn, or Twitch while sleeping: Yes Recalls having dreams: Yes (sometimes - history of nightmares / PTSD) Usually gets out of bed at: 7:30 am Feels refreshed in the morning: No Morning headache: No Sleepy or fatigued during the day: Yes Ever fallen asleep while driving: No Takes day naps: Yes (one hour most days) Dreams during day naps: No Prior sleep studies: No - Parasomnia Symptoms Ever been unable to move upon waking from sleep: Yes (about 2 times a year for past 20 years) Walks in sleep: No Talks in sleep: Yes (sometimes) Ever acted out dreams in sleep: No Ever felt weak in the knees when startled or emotional: Yes (if very upset or scared - rare 2-3 times a year ) Bothered by creepy, crawly, restless sensations in legs: Yes (itching skin about once a month - relieved by Benadryl) Problems with memory or concentration: Yes Subjective Initial [place] Sleepiness Scale score: 2 Past Medical History Past Medical History: reports: Claustrophobia, Fibromyalgia, Anemia, Anxiety, Depression (denies thoughts of hurting self or others), GERD, Other (high heart rate - 130 consult with yardage control operator forming - metoprolol / right foot fracture in boot brace in February / seizures when off lorazepam - sees neurologist) Social History The patient's occupation is Not Employed. Patient is and lives in [place]. Have you smoked in the past 12 months: Yes Cigarettes per day (20/pack): 10 Years of smokin Smoking Pack Years: 12.0 Alcohol use: No Caffeine use: Yes Caffeine amount and frequency: 12 ounces Family History Family history of sleep disordered breathing: Yes Family Hx Sleep Apnea: Father: Sleep apnea - Treated Allergies and Home Medications Known drug allergies: Yes (penicillin , acyclovir ) Home medication list reviewed: Yes (see revised list ) Review of Systems Cardiovascular: reports: irregular heart rate or pulse Gastrointestinal: reports: difficulty swallowing Urinary: reports: incontinence, frequency Neurological: reports: seizure (sees neurologist), head trauma (twice with past seizures and CT scan completed) Psychiatric: reports: anxiety, depression Ear/Nose/Throat: reports: nasal congestion (chronic), sinus problems (chronice), dry mouth/throat (day and night), hoarseness (intermittently), wisdom teeth removed Endocrine: reports: sluggishness Musculoskeletal: reports: back pain (chronic ), muscle pain or cramping (chronic ) Immunologic: reports: itching Physical Exam Blood Pressure: 104/70 Cuff size: long Heart Rate: 115 O2 Saturation: 97 Height: 5 ft 7 in Weight: 230 lb Body Mass Index: 36.0 BMI Classification: Obesity Class 2 Neck circumference: 15 HEENT: No craniofacial malformation Nostrils: patent to airflow Turbinates: normal Septum: midline Mouth and throat: narrow oropharynx Soft palate: long Hard palate: normal Uvula: normal Uvula visualization: 25% Mallampati Class III Tongue: normal in size Tonsils: 2+ Chin and jaw: Retrognathia Neck: normal w/o lymphadenopathy or thyromegaly Heart: regular rate and rhythm Lungs: clear bilaterally Extremities: no edema or clubbing Impression and Plan 1. Suspected Obstructive Sleep Apnea-Hypopnea Syndrome, as suggested by a history of loud and irregular snoring, insomnia, unrefreshed sleep, cognitive impairment, and excessive daytime sleepiness that requires a daily nap. Narrow oropharynx and obesity are common predisposing factors for obstructive sleep apnea-hypopnea syndrome. Patient also has retroganthia which can increase risk for sleep apnea. I recommend proceeding to polysomnography to confirm the diagnosis and to assess severity. If the patient has significant sleep disordered breathing, a manual CPAP titration study will also be performed to find the optimal treatment pressure. I informed the patient of what the sleep studies involve and after some discussion, obtained agreement to proceed. The pathophysiology of obstructive sleep apnea-hypopnea syndrome was discussed with the patient and health risks of cardiovascular and cerebrovascular disease if not treated. [facility] brochure for obstructive sleep apnea-hypopnea syndrome given and reviewed. She does not drive at this time due to seizure history. * Schedule polysomnography +- manual CPAP titration study * Avoid long distance driving or driving when feeling sleepy. * Avoid alcohol, sedative and muscle relaxant around bedtime. * Attempt to lose weight. * Review instructions provided by trained office staff on how to prepare for the sleep study. * Return for follow-up after sleep study completed. I spent 100% of this 45 minute visit face to face with the patient with greater than 50% of this was spent time counseling the patient and coordination of care.
== END 2019-08-18 10:03 | disposition home or self-care (01) ==
LOC: SC 10:02
PROVIDERS: ATTEND Nurse Practitioner Family
DX: G47.10 Hypersomnia, unspecified (principal); G47.8 Other sleep disorders; R06.83 Snoring; R41.89 Other symptoms and signs involving cognitive functions and awareness; E66.9 Obesity, unspecified; Z68.36 Body mass index [BMI] 36.0-36.9, adult; F17.210 Nicotine dependence, cigarettes, uncomplicated
CPT/HCPCS: 99204; 99212

== ENCOUNTER 2019-09-02 20:32 | Outpatient (CLI) | payer MEDICAID | END 2019-09-02 20:33 | disposition home or self-care (01) | LOC: SC 20:32 | PROVIDERS: ATTEND Internal Medicine Pulmonary Disease | DX: G47.10 Hypersomnia, unspecified (principal) | CPT/HCPCS: 95810 ==

== ENCOUNTER 2019-10-10 19:18 | Emergency (ER) | payer MEDICAID ==
--- NOTE | 2019-10-10 19:57 | ED Physician Documentation ---
History of Present Illness - Stated complaint Stated Complaint: F - Chief complaint Chief Complaint: Abd Pain - History obtained from History obtained from: Patient (The patient is a 39 y/o f who p/w a cc of vaginal bleeding and rectal bleeding that started 2 weeks ago, she reports in august she had some sort of rectocele and cystocele repair. since then she reports occasional vaginal bleeding after intercourse and also reports that she has had some hemorrhoids. she denies pain, syncope or anticoagulation.) Review of Systems Constitutional: reports: Reviewed and negative Eyes: reports: Reviewed and negative Ears: reports: Reviewed and negative Nose: reports: Reviewed and negative Throat: reports: Reviewed and negative Cardiac: reports: Reviewed and negative Respiratory: reports: Reviewed and negative GI: reports: Bloody / black stool, Reviewed and negative : reports: Vaginal bleeding Skin: reports: Reviewed and negative Musculoskeletal: reports: Reviewed and negative Neurologic: reports: Reviewed and negative Psychiatric: reports: Reviewed and negative Endocrine: reports: Reviewed and negative Immunocompromised: reports: Reviewed and negative PD PAST MEDICAL HISTORY - Past Medical History Cardiovascular: Other Respiratory: None Neuro: Seizure disorder Endocrine/Autoimmune: None GI: None 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: 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, Ovarian cysts : None HEENT: None Psych: Depression, Anxiety Musculoskeletal: None Derm: None - Past Surgical History Past Surgical History: Yes /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: section, Tubal ligation, Hysterectomy HEENT: Other - Present Medications Home Medications: Ambulatory Orders Medication Instructions Recorded Confirmed Venlafaxine [Effexor] 150 mg PO BID 09/13/13 03/07/17 Nortriptyline [Pamelor] 50 mg PO QPM 03/11/14 03/07/17 oxyCODONE/ACET 5/325 [Percocet 5 1 each PO Q4-6H PRN #10 tablet 05/06/15 03/07/17 mg/325 mg] Lorazepam [Ativan] 1 mg PO BID PRN #14 tablet 05/11/16 03/07/17 Phenytoin [Dilantin] 100 mg PO TID #60 capsule 06/03/16 03/07/17 Cyclobenzaprine [Flexeril] 10 mg PO TID PRN #20 tablet 03/01/17 03/07/17 Polyethylene Glycol 3350 [Miralax] 17 gm PO DAILY PRN #1 bottle 03/01/17 03/07/17 Metoprolol Tartrate [Lopressor] 25 mg PO TID 03/07/17 03/07/17 Cyclobenzaprine [Flexeril] 10 mg PO TID PRN #20 tablet 06/02/18 Meloxicam [Mobic] 15 mg PO DAILY PRN #20 tablet 06/02/18 Methylprednisolone [Medrol] 4 mg PO DAILY #1 tab.ds.pk 06/02/18 Sulfamethoxazole/Trimethoprim 1 each PO BID #14 tablet 01/25/19 [Sulfamethoxazole-Tmp Ds Tablet] Ibuprofen [Motrin] 800 mg PO Q8H PRN #30 tablet 03/12/19 Promethazine [Phenergan] 25 mg PO Q6H PRN #10 tab 03/12/19 Docusate Sodium 100 mg PO DAILY #30 capsule 04/24/19 Hydrocortisone Acetate [Anucort-Hc] 25 mg RC DAILY #5 supp.rect 04/24/19 - Allergies Allergies/Adverse Reactions: Allergies Allergy/AdvReac Type Severity Reaction Status Date / Time Penicillins Allergy Hives Verified 10/10/19 19:27 acyclovir AdvReac Severe sick to Verified 10/10/19 19:27 stomach; vomiting; - Social History Does the pt smoke?: Yes Smoking Status: Current every day smoker Does the pt drink ETOH?: No Does the pt have substance abuse?: No - Immunizations Immunizations are current?: Yes - POLST Patient has POLST: No PD ED PE NORMAL - Vitals Vital signs reviewed: Yes - General General: Alert and oriented X 3, No acute distress - HEENT HEENT: PERRL - Neck Neck: Supple, no meningeal sign - Cardiac Cardiac: RRR, No murmur - Respiratory Respiratory: Clear bilaterally - Abdomen Abdomen: Normal bowel sounds, Soft, Non tender, Non distended - Female Female : Plant Operator Helper present (female nurse present for exam), Other (no lesions, no active bleeding, no discharge, no cervical motion tenderness, no adnexal masses) - Rectal Rectal: Other (femal nurse present. no external hemorrhoids, no fissures or fistuals, internal hemorrhoids on exam present, no masses, no gross blood. hemoccult card sent to lab, results pending.) - Derm Derm: Warm and dry - Extremities Extremities: No deformity - Neuro Neuro: Alert and oriented X 3 - Psych Psych: Normal mood, Normal affect Results - Vitals Vitals: Vital Signs - 24 hr 10/10/19 19:27 Temperature 36.6 C Heart Rate 108 H Respiratory 14 Rate Blood Pressure 127/93 H O2 Saturation 99 Oxygen O2 Source Room air - Labs Labs: Microbiology 10/10/19 20:40 Occult Blood - Final Stool Laboratory Tests 10/10/19 10/10/19 10/10/19 20:03 20:03 20:03 WBC 11.0 H RBC 3.76 L Hgb 11.6 L Hct 35.5 L MCV 94.4 MCH 30.9 MCHC 32.7 RDW 13.2 Plt Count 317 MPV 10.6 Neut # (Auto) 5.8 Lymph # (Auto) 3.7 H [place] # (Auto) 0.7 Eos # (Auto) 0.7 Baso # (Auto) 0.1 Absolute Nucleated RBC 0.00 Nucleated RBC % 0.0 PT 12.0 INR 1.1 APTT 36.7 H Sodium 138 Potassium 3.8 Chloride 102 Carbon Dioxide 24 Anion Gap 12.0 BUN 15 Creatinine 0.6 Estimated GFR (MDRD) 112 Glucose 92 Calcium 8.8 Total Bilirubin 0.4 AST 15 ALT 19 Alkaline Phosphatase 46 Total Protein 6.7 Albumin 3.8 Globulin 2.9 Albumin/Globulin Ratio 1.3 Lipase 24 Urine Color Urine Clarity Urine pH Ur Specific [place] Urine Protein Urine Glucose (UA) Urine Ketones Urine Occult Blood Urine Nitrite Urine Bilirubin Urine Urobilinogen Ur Leukocyte Esterase Ur Microscopic Review Urine Culture Comments Urine HCG, Qual 10/10/19 20:25 WBC RBC Hgb Hct MCV MCH MCHC RDW Plt Count MPV Neut # (Auto) Lymph # (Auto) [place] # (Auto) Eos # (Auto) Baso # (Auto) Absolute Nucleated RBC Nucleated RBC % PT INR APTT Sodium Potassium Chloride Carbon Dioxide Anion Gap BUN Creatinine Estimated GFR (MDRD) Glucose Calcium Total Bilirubin AST ALT Alkaline Phosphatase Total Protein Albumin Globulin Albumin/Globulin Ratio Lipase Urine Color YELLOW Urine Clarity CLEAR Urine pH 6.0 Ur Specific [place] >=1.030 H Urine Protein NEGATIVE Urine Glucose (UA) NEGATIVE Urine Ketones NEGATIVE Urine Occult Blood TRACE-INTA Urine Nitrite NEGATIVE Urine Bilirubin NEGATIVE Urine Urobilinogen 0.2 (NORMAL) Ur Leukocyte Esterase NEGATIVE Ur Microscopic Review NOT INDICATED Urine Culture Comments NOT INDICATED Urine HCG, Qual NEGATIVE Departure - Departure Disposition: Home, Self Care Clinical Impression: Vaginal bleeding, Bloody stools Condition: Good Instructions: ED Bleed Irregular Vaginal, Bleeding Rectal Follow-Up: Yeyo Garcia MD [Primary Care Provider] - Comments: follow up with your PCP or your OBGYN tomorrow. Schedule an appointment for an outpatient colonoscopy within the next month.
[2019-10-10 20:09] LABS: BASOPHILS # (AUTO) 0.1 10^3/uL (0.0-0.1); BASOPHILS % (AUTO) 0.9 %; EOSINOPHILS # (AUTO) 0.7 10^3/uL (0.0-0.7); EOSINOPHILS % (AUTO) 6.5 %; HGB - HEMOGLOBIN 11.6 g/dL (12.0-16.0); LYMPHOCYTES # (AUTO) 3.7 10^3/uL (1.5-3.5); LYMPHOCYTES % (AUTO) 33.3 %; MEAN CORPUSCULAR HEMOGLOBIN 30.9 pg (27.0-31.0); MEAN CORPUSCULAR HGB CONC 32.7 g/dL (32.0-36.0); MEAN CORPUSCULAR VOLUME 94.4 fL (81.0-99.0); MEAN PLATELET VOLUME 10.6 fL (7.9-10.8); MONOCYTES # (AUTO) 0.7 10^3/uL (0.0-1.0); MONOCYTES % (AUTO) 6.3 %; NEUTROPHILS # (AUTO) 5.8 10^3/uL (1.5-6.6); NEUTROPHILS % (AUTO) 52.6 %; PLT - PLATELET COUNT 317 10^3/uL (130-450); RED BLOOD COUNT 3.76 10^6/uL (4.20-5.40); RED CELL DISTRIBUTION WIDTH 13.2 % (12.0-15.0)
[2019-10-10 20:23] LABS: ALBUMIN 3.8 g/dL (3.2-5.5); ALBUMIN/GLOBULIN RATIO 1.3 (1.0-2.2); BILIRUBIN,TOTAL 0.4 mg/dL (0.2-1.0); CALCIUM 8.8 mg/dL (8.5-10.3); CREATININE 0.6 mg/dL (0.4-1.0); TOTAL PROTEIN 6.7 g/dL (6.7-8.2)
[2019-10-10 20:28] LABS: INR 1.1 (0.8-1.2)
[2019-10-10 20:35] LABS: PARTIAL THROMBOPLASTIN TIME 36.7 secs (24.9-33.3)
[2019-10-10 20:49] LABS: BILIRUBIN,URINE NEGATIVE (NEGATIVE); GLUCOSE, URINE (UA) NEGATIVE (NEGATIVE); KETONES,URINE (UA) NEGATIVE (NEGATIVE); LEUKOCYTE ESTERASE, URINE NEGATIVE (NEGATIVE); NITRITE,URINE NEGATIVE (NEGATIVE); OCCULT BLOOD,URINE TRACE-INTA (NEGATIVE); PROTEIN,URINE NEGATIVE (NEGATIVE); UROBILINOGEN,URINE 0.2 (NORMAL) E.U./dL (NORMAL)
[2019-10-10 20:52] LABS: CLARITY,URINE CLEAR (CLEAR); HCG UR QUAL NEGATIVE
--- NOTE | 2019-10-10 21:28 | Ultrasound Report ---
Reason: pelvic pain, R Procedure Date: 10/10/2019 Accession Number: [id number] / [id number] Procedure: US - Pelvic w/Transvag+Doppler Comp CPT Code: Final Report FULL RESULT: EXAM: PELVIC ULTRASOUND WITH DOPPLERS CLINICAL HISTORY: Pelvic pain, R. COMPARISON: None. TECHNIQUE: Realtime transabdominal imaging performed to identify the uterus and adnexa and as an overview of other pelvic structures, followed by transvaginal imaging for better assessment of the endometrium and adnexa, with static image documentation. Color flow imaging and Doppler spectral analysis was performed to evaluate blood flow to the ovaries given pelvic pain and clinical concern for ovarian torsion. FINDINGS: Uterus: Status post hysterectomy. Right Ovary: Surgically absent. Left Ovary: 4.2 x 2.7 x 2.9 cm, volume 16.7 cc. Normal echotexture. Arterial and venous blood flow are present.Adnexa are unremarkable. Free Fluid: None. Other: None. IMPRESSION: 1. Status post hysterectomy and right oophorectomy. 2. Arterial and venous blood flow are present to the left ovary. No adnexal mass. No free fluid. RADIA
[2019-10-10 22:16] VITALS: BP 132/94
== END 2019-10-10 22:15 | disposition home or self-care (01) ==
LOC: ED 19:18
DX: N93.9 Abnormal uterine and vaginal bleeding, unspecified (principal); K92.1 Melena; K64.8 Other hemorrhoids; F17.200 Nicotine dependence, unspecified, uncomplicated
CPT/HCPCS: 36415; 76830; 76856; 80053; 81001; 81003; 81025; 82272; 83690; 85025; 85610; 85730; 87086; 93975; 99284

== ENCOUNTER 2019-10-12 09:11 | Outpatient (CLI) | payer MEDICAID ==
[2019-10-12 10:24] VITALS: BP 110/70
--- NOTE | 2019-10-12 10:24 | SLEEP CARE CONSULTATION ---
Information from patient questionnaire entered by Tamar Levy. I have reviewed and concur with the information entered by Tamar Levy. This document represents the service I personally performed and the decisions made by me, Marion Vidales RN, MSN, [employer]. History of Present Illness Initial Bethesda Sleepiness Scale score: 2 Current Bethesda Sleepiness Scale score: 15 Additional HPI information: JIM STONE returns with partner for follow up of the recently performed polysomnography. I explained the pathophysiology behind obstructive sleep apnea. Patient does not have sleep apnea and was advised how weight gain could increase the risk of developing sleep apnea in the future. I strongly encouraged the patient to lose weight. However, she did not sleep supine so sleep apnea cannot be ruled out in supine position. Patient reports she does not sleep supine at home and never wakes up on her back . In the past she would wake up feeling uncomfortable and scared for unknown reason. She recalls that occurred during her about 9 years ago. She also states her large breasts makes her feel suffocated when she has slept on her back in the past. Patient has mild snoring. Snoring can be reduced by weight loss. Weight loss is best achieved with diet consult. Patient instructed to contact PCP for referral. Snoring can also be treated with an oral appliance from a dentist. Advised to check insurance coverage. A list of dentists were given to consider. In addition, an ENT evaluation can be do to see if other treatment is indicated. Patient counseled not drink alcohol less than 4 hours before bedtime as it can increase snoring and apnea. Patient does not drink alcohol. Patient was cautioned about risks of drowsy driving until sleepiness symptoms resolve. Patient denies drowsy driving. AAS patient education on snoring and sleep apnea given and reviewed given at last visit. Sleep Study - Results Polysomnography/Home Sleep Study results: The quality of the study is good. The patient had normal sleep efficiency. The sleep architecture was normal as well. Respiratory monitoring showed no significant sleep disordered breathing (AHI = 0.2) or hypoxia (jenny oxygen saturation of 93%). The patient did not sleep supine during this study (supine AHI = 0.0; non-supine = 0.24). Snore was light in intensity. There was no significant periodic leg movement of sleep. Cardiac rhythm was normal sinus rhythm without significant arrhythmia. No abnormal behavior (parasomnia) observed during the night. Allergies and Home Medications Known drug allergies: Yes (pencillin , acyclovir ) Home medication list reviewed: Yes (see changes) Allergy and home medication list: venlafaxine 150mg bid nortriptyline 50mg HS metoprolol 25mg tid lorazepam 1mg prn ibuprofen 800mg q 8 hr prn docusate sodium 100mg daily cyclobenzaprine 10mg tid prn oxycodone /Acet 5/325mg q 4-6 Hr prn Review of Systems Review of systems same as previous: No (breast lump - ultrasound tomorrow, rectal bleeding- ER-sees PCP) Physical Exam Blood Pressure: 110/70 Cuff size: long Heart Rate: 102 O2 Saturation: 98 Height: 5 ft 8 in Weight: 242 lb Weight change since last visit: gained 12 pounds Body Mass Index: 36.8 BMI Classification: Obesity Class 2 Impression and Plan 1. Snoring but no significant sleep disordered breathing. However because patient did not sleep on her back, apnea in that position cannot be ruled out. She states she never wakes on her back in the past 9 years since last . She had a scary recollection of sleeping supine when . She also reports her breasts feels like they will smother her when she lies on back. Methods to ensure she does not sleep on her back were discussed such as a Tshirt with tennis balls sewn on back or the Sluimber bump. She was informed she could try this to see if does sleep on back to see if part of her sleepiness symptoms but she declined as she feels she never sleeps supine. Thus she was advised to follow up with her PCP for further evaluation of her fatigue. It appears she is currently undergoing diagnostics for other medical conditions as noted in HPI / ROS that could contribute to her fatigue in addition to her snoring. For her snoring, patient advised that often weight loss will reduce snoring as well as apnea risk. An oral appliance can also be used for snoring. This would require a dental consultation. Patient cautioned not to use other online appliances as can cause bite issues. A list of accredited dentists in area and one local dentist who makes oral appliances given. Patient is advised to check if insurance will cover. An ENT consult can also be helpful to determine if any other treatment is an option. She has a follow up with ENT to discuss tonsillectomy. A tonsillectomy can reduce apnea risk in patients with enlarged tonsils. * Attempt to lose weight * Follow with PCP for fatigue. * Avoid alcohol consumption near bedtime * The patient is cautioned about driving until sleepiness is completely resolved. * Return in for follow up as needed. Time Spent with Patient (minutes): 30 I spent 100% of this visit face to face with the patient with greater than 50% of this was spent time counseling the patient and coordination of care.
== END 2019-10-12 09:12 | disposition home or self-care (01) ==
LOC: SC 09:11
PROVIDERS: ATTEND Nurse Practitioner Family
DX: R06.83 Snoring (principal); G47.10 Hypersomnia, unspecified; R53.83 Other fatigue; E66.9 Obesity, unspecified; Z68.36 Body mass index [BMI] 36.0-36.9, adult
CPT/HCPCS: 99212; 99214

== ENCOUNTER 2020-02-16 16:55 | Outpatient (CLI) | payer MEDICAID | END 2020-02-16 16:56 | disposition E | LOC: EMS 16:55 | PROVIDERS: ATTEND Surgery ==